=== PATIENT | male | born 1955 | race Two or more races ===

== ENCOUNTER 2023-01-03 23:40 | Inpatient (IN) | payer OTHER ==
[2023-01-04 00:10] VITALS: BMI 23.8
[2023-01-04] MEDS ORDERED: ACETAMINOPHEN 1000 MG/100 ML BAG IVPB ONE (00:51)
[2023-01-04] MEDS ORDERED: ACETAMINOPHEN INJECTION 100 ML IVPB ONE (00:58)
[2023-01-04 01:07] LABS: BASO % 0.4 % (0-2.0); EOS % 5.9 % (0-4.5); HEMATOCRIT 42.3 % (35.4-49); HEMOGLOBIN 14.2 GM/dL (11.7-16.9); LYMPH % 17.5 % (8-40); MCH 27.6 pg (25.7-33.7); MCHC 33.6 g/dl (32.0-35.9); MEAN CELL VOLUME 82.3 fl (80-96); MEAN PLT VOLUME 8.3 fl (7.5-11.1); MONO % 12.1 % (3.8-10.2); NEUT % 64.1 % (42.8-82.8); PLATELET COUNT 220 10^3/uL (134-434); RBC 5.14 M/mm3 (4.00-5.60); RDW 18.1 % (11.9-15.9); WHITE BLOOD COUNT 6.8 K/mm3 (4.0-10.0)
[2023-01-04 01:11] LABS: INR 1.04 (0.83-1.09); PROTHROMBIN TIME (PATIENT) 12.1 SEC (9.7-13.0)
[2023-01-04 01:14] LABS: ACTIVATED PTT 30.1 SECONDS (25.2-36.5)
[2023-01-04 01:24] LABS: POTASSIUM 4.8 mmol/L (3.5-5.1)
[2023-01-04 01:27] LABS: CALCIUM 9.3 mg/dL (8.5-10.1)
[2023-01-04 01:28] LABS: ALBUMIN 3.8 g/dl (3.4-5.0); BLOOD UREA NITROGEN 24.8 mg/dL (7-18); MAGNESIUM 1.8 mg/dL (1.8-2.4)
[2023-01-04 01:31] LABS: CREATININE 1.9 mg/dL (0.55-1.3)
[2023-01-04 01:32] LABS: TOT PROT 7.1 g/dl (6.4-8.2)
[2023-01-04 01:33] LABS: BILIRUBIN,TOTAL 0.5 mg/dL (0.2-1)
[2023-01-04] MEDS ORDERED: CLOPIDOGREL BISULFATE 300 MG TABLET PO ONE (05:18)
[2023-01-04] MEDS ORDERED: CLOPIDOGREL BISULFATE 300 MG TABLET ONE (05:29)
[2023-01-04] MEDS ORDERED: ENOXAPARIN NA (PORCINE) 60 MG/0.6 ML DISP.SYRIN SQ ONE ×2 (06:45→06:50)
[2023-01-04] MEDS ORDERED: morphine CARPU-JECT 4 MG/1 ML DISP.SYRIN IVPUSH ONE (08:41)
[2023-01-04] MEDS ORDERED: morphine SULFATE 4 MG/ML VIAL ONE (08:42)
[2023-01-04] MEDS ORDERED: traMADol HCL 50 MG TABLET PO PRN (09:41)
[2023-01-04] MEDS ORDERED: ALBUTEROL SO4 HFA INHALER IH PRN (09:41)
[2023-01-04] MEDS ORDERED: HYDROCORTISONE 20 MG TABLET PO SCH (10:00)
[2023-01-04] MEDS ORDERED: TAMSULOSIN HCL 0.4 MG CAP PO SCH (10:00)
[2023-01-04] MEDS ORDERED: PATIENT'S OWN MEDICATION (NON-FORMULARY) (Calcium Carbonate/Vitamin D3 [Calcium 500-Vit D3 PO SCH (10:00)
[2023-01-04] MEDS ORDERED: SACUBITRIL/VALSARTAN 24 MG-26 MG TABLET PO SCH (10:00)
[2023-01-04] MEDS ORDERED: CARVEDILOL 6.25 MG TABLET (FP) PO SCH (10:00)
[2023-01-04] MEDS ORDERED: CALCIUM 500MG/VIT-D 200 UNITS COMBO TABLET (FP) PO SCH (10:00)
[2023-01-04] MEDS ORDERED: SACUBITRIL/VALSARTAN 24 MG-26 MG TABLET ONE (10:02)
[2023-01-04] MEDS ORDERED: CARVEDILOL 6.25 MG TABLET (FP) ONE (10:02)
[2023-01-04] MEDS ORDERED: TAMSULOSIN HCL 0.4 MG CAP ONE (10:02)
[2023-01-04] MEDS ORDERED: ATORVASTATIN CA 80 MG TABLET (FP) PO ONE (10:48)
[2023-01-04] MEDS ORDERED: ATORVASTATIN CA 80 MG TABLET (FP) ONE (10:59)
[2023-01-04] MEDS ORDERED: DEXTROSE 50%-WATER 25 GM/50 ML DISP.SYRIN ONE (12:56)
[2023-01-04] MEDS ORDERED: DEXTROSE 50%-WATER - 25 GM/50 ML VIAL IVPUSH ONE (13:00)
[2023-01-04] MEDS ORDERED: NITROGLYCERIN SUBLINGUAL 1/150 0.4 MG TAB SL PRN (13:09)
[2023-01-04 14:43] VITALS: BP 120/71; PULSE 78; RESP 23; TEMP 98
[2023-01-04] MEDS ORDERED: ENOXAPARIN NA (PORCINE) 60 MG/0.6 ML DISP.SYRIN SQ SCH (18:00)
[2023-01-05] MEDS ORDERED: CLOPIDOGREL BISULFATE 75 MG TABLET (FP) PO SCH (10:00)
[2023-01-05] MEDS ORDERED: ATORVASTATIN CA 80 MG TABLET (FP) PO SCH (22:00)
== END 2023-01-04 13:40 | disposition short-term general hospital (02) | DRG 281 ==
LOC: JER 23:40 → JERBED 01-04 06:06 → OBSVTOIN 01-04 09:53
PROVIDERS: ADMIT Internal Medicine; ATTEND Internal Medicine
DX: I21.4 Non-ST elevation (NSTEMI) myocardial infarction (principal); I13.0 Hypertensive heart and chronic kidney disease with heart failure and stage 1 through stage 4 chronic kidney disease, or unspecified chronic kidney disease; I50.22 Chronic systolic (congestive) heart failure; I25.10 Atherosclerotic heart disease of native coronary artery without angina pectoris; Z85.118 Personal history of other malignant neoplasm of bronchus and lung; N18.9 Chronic kidney disease, unspecified
CPT/HCPCS: 0241U-QW; 36415; 71045-TC-FY; 71275-TC; 80053; 82962; 83735; 84460; 84484; 85025; 85610; 85730; 93005; 93010; 99285-25; G0378; Q9967

== ENCOUNTER 2023-01-24 20:11 | Inpatient (IN) | payer OTHER ==
[2023-01-24 22:28] LABS: VENOUS BASE EXCESS -5.5 mmol/L (-2-2); VENOUS PH 7.207 (7.310-7.410)
[2023-01-24 22:29] LABS: BASO % 1.1 % (0-2.0); EOS % 4.8 % (0-4.5); HEMATOCRIT 33.4 % (35.4-49); LYMPH % 11.2 % (8-40); MCH 27.6 pg (25.7-33.7); MCHC 32.9 g/dl (32.0-35.9); MEAN CELL VOLUME 83.8 fl (80-96); MEAN PLT VOLUME 7.4 fl (7.5-11.1); MONO % 8.3 % (3.8-10.2); NEUT % 74.6 % (42.8-82.8); PLATELET COUNT 445 10^3/uL (134-434); RBC 3.98 M/mm3 (4.00-5.60); RDW 17.2 % (11.9-15.9); WHITE BLOOD COUNT 7.9 K/mm3 (4.0-10.0)
[2023-01-24 22:36] LABS: INR 1.18 (0.83-1.09); PROTHROMBIN TIME (PATIENT) 13.7 SEC (9.7-13.0)
[2023-01-24 22:39] LABS: ACTIVATED PTT 31.7 SECONDS (25.2-36.5)
[2023-01-24 22:41] LABS: POTASSIUM 4.7 mmol/L (3.5-5.1)
[2023-01-24 22:43] LABS: ALBUMIN 2.9 g/dl (3.4-5.0); BLOOD UREA NITROGEN 17.5 mg/dL (7-18); CALCIUM 8.8 mg/dL (8.5-10.1)
[2023-01-24 22:47] LABS: CREATININE 1.8 mg/dL (0.55-1.3)
[2023-01-24 22:48] LABS: BILIRUBIN,TOTAL 0.4 mg/dL (0.2-1)
[2023-01-24 22:51] LABS: N-TERMINAL BNP 1885.8 pg/ml (5-125)
[2023-01-25] MEDS ORDERED: PIPERACILLIN/TAZOB 4.5 GM 4.5 GM in DEXTROSE 5%-WATER 100 ML IVPB ONE (02:10)
[2023-01-25] MEDS ORDERED: VANCOMYCIN 1,000 MG in DEXTROSE 5%-WATER - 250 ML IVPB ONE (02:10)
[2023-01-25] MEDS ORDERED: PIPERACILLIN/TAZOB 4.5 GM 4.5 GM/100 ML BAG IVPB ONE (02:44)
[2023-01-25] MEDS ORDERED: VANCOMYCIN 1 GRAM (PRE-DOCKED) 1,000 MG/250 ML BAG IVPB ONE (04:01)
[2023-01-25] MEDS ORDERED: HEPARIN NA (PORCINE) 5,000 UNITS/ML 1ML VIAL ONE (05:37)
[2023-01-25] MEDS: HEPARIN NA (PORCINE) 5,000 UNITS/ML 1ML VIAL SQ SCH ×3 (05:46→23:35)
[2023-01-25 08:37] LABS: BASO % 0.5 % (0-2.0); EOS % 2.9 % (0-4.5); HEMATOCRIT 34.3 % (35.4-49); HEMOGLOBIN 11.4 GM/dL (11.7-16.9); LYMPH % 6.5 % (8-40); MCHC 33.3 g/dl (32.0-35.9); MEAN CELL VOLUME 84.1 fl (80-96); MEAN PLT VOLUME 7.4 fl (7.5-11.1); MONO % 4.5 % (3.8-10.2); NEUT % 85.6 % (42.8-82.8); PLATELET COUNT 447 10^3/uL (134-434); RBC 4.08 M/mm3 (4.00-5.60); RDW 17.3 % (11.9-15.9); WHITE BLOOD COUNT 10.5 K/mm3 (4.0-10.0)
[2023-01-25 08:52] LABS: POTASSIUM 5.1 mmol/L (3.5-5.1)
[2023-01-25 08:54] LABS: ALBUMIN 2.7 g/dl (3.4-5.0); BLOOD UREA NITROGEN 15.7 mg/dL (7-18); CALCIUM 9.1 mg/dL (8.5-10.1); MAGNESIUM 1.7 mg/dL (1.8-2.4)
[2023-01-25 08:57] LABS: CREATININE 1.6 mg/dL (0.55-1.3); PHOSPHOROUS 4.2 mg/dL (2.5-4.9)
[2023-01-25 08:59] LABS: BILIRUBIN,TOTAL 0.6 mg/dL (0.2-1); IRON SERUM 31 ug/dL (50-175); TOT PROT 5.8 g/dl (6.4-8.2)
[2023-01-25 09:00] LABS: TOTAL IRON BINDING CAPACITY 186 ug/dL (250-450)
[2023-01-25] MEDS ORDERED: ENOXAPARIN NA (PORCINE) 40 MG/0.4 ML DISP.SYRIN SQ SCH (10:00)
[2023-01-25] MEDS ORDERED: PIPERACILLIN/TAZOB 3.375 GM 3.375 GM in DEXTROSE 5%-WATER - 50 ML IVPB SCH (10:00)
[2023-01-25] MEDS ORDERED: ALBUTEROL SO4 2.5/IPRATROPIUM 0.5 INH SOL 3 ML VIAL.NEB. NEB ONE ×3 (12:25→22:56)
[2023-01-25] MEDS ORDERED: CLOPIDOGREL BISULFATE 75 MG TABLET (FP) ONE (12:25)
[2023-01-25] MEDS ORDERED: methylPREDNISolone NA SUCC 40 MG/1 ML VIAL ONE ×2 (12:26→22:56)
[2023-01-25] MEDS ORDERED: PIPERACILLIN/TAZOB 3.375 GM 3.375 GM/50 ML BAG IVPB ONE (12:26)
[2023-01-25] MEDS: CLOPIDOGREL BISULFATE 75 MG TABLET (FP) PO SCH (12:43)
[2023-01-25] MEDS: methylPREDNISolone NA SUCC 40 MG/1 ML VIAL IVPUSH SCH ×2 (12:43→22:57)
[2023-01-25] MEDS: ALBUTEROL SO4 2.5/IPRATROPIUM 0.5 INH SOL 3 ML VIAL.NEB. NEB SCH ×3 (12:52→22:57)
[2023-01-25] MEDS ORDERED: NAPH,MB-DB/K PH,MBDB POWDER PACKET PO ONE (15:36)
[2023-01-25] MEDS ORDERED: NAPH,MB-DB/K PH,MBDB POWDER PACKET ONE (16:53)
[2023-01-25] MEDS: BUDESONIDE/FORMETEROL FUMARATE 160/4.5 mcg INHALER IH SCH ×2 (17:46→23:35)
[2023-01-25] MEDS ORDERED: CEFTRIAXONE 2 GM/100 ML BAG IVPB ONE (19:15)
[2023-01-25] MEDS ORDERED: AZITHROMYCIN IVPB 500 MG/250 ML BAG IVPB ONE (19:16)
[2023-01-25] MEDS: CEFTRIAXONE 2 GM in DEXTROSE 5%-WATER 100 ML IVPB SCH (19:24)
[2023-01-25] MEDS: AZITHROMYCIN IVPB 500 MG/250 ML BAG IVPB SCH (20:15)
[2023-01-25] MEDS ORDERED: ATORVASTATIN CA 40 MG TABLET (FP) ONE (22:16)
[2023-01-25] MEDS ORDERED: CARVEDILOL 3.125 MG TABLET (FP) ONE (22:16)
[2023-01-25] MEDS: CARVEDILOL 3.125 MG TABLET (FP) PO SCH (22:29)
[2023-01-25] MEDS: ATORVASTATIN CA 40 MG TABLET (FP) PO SCH (22:29)
[2023-01-26] MEDS ORDERED: methylPREDNISolone NA SUCC 40 MG/1 ML VIAL ONE (02:06)
[2023-01-26] MEDS: methylPREDNISolone NA SUCC 40 MG/1 ML VIAL IVPUSH SCH ×3 (02:10→18:25)
[2023-01-26] MEDS ORDERED: ALBUTEROL SO4 2.5/IPRATROPIUM 0.5 INH SOL 3 ML VIAL.NEB. NEB ONE (05:32)
[2023-01-26] MEDS ORDERED: HEPARIN NA (PORCINE) 5,000 UNITS/ML 1ML VIAL ONE (05:36)
[2023-01-26] MEDS: HEPARIN NA (PORCINE) 5,000 UNITS/ML 1ML VIAL SQ SCH ×3 (05:40→22:14)
[2023-01-26] MEDS ORDERED: ALBUTEROL SO4 2.5/IPRATROPIUM 0.5 INH SOL 3 ML VIAL.NEB. NEB PRN (06:24)
[2023-01-26 08:25] LABS: HEMATOCRIT 35.6 % (35.4-49); HEMOGLOBIN 11.7 GM/dL (11.7-16.9); MCH 27.2 pg (25.7-33.7); MCHC 32.8 g/dl (32.0-35.9); MEAN CELL VOLUME 83.1 fl (80-96); MEAN PLT VOLUME 7.6 fl (7.5-11.1); PLATELET COUNT 557 10^3/uL (134-434); RBC 4.29 M/mm3 (4.00-5.60); RDW 17.4 % (11.9-15.9); WHITE BLOOD COUNT 12.5 K/mm3 (4.0-10.0)
[2023-01-26] MEDS ORDERED: AZITHROMYCIN IVPB 500 MG/250 ML BAG IVPB ONE (08:45)
[2023-01-26] MEDS ORDERED: CEFTRIAXONE 2 GM/100 ML BAG IVPB ONE (08:45)
[2023-01-26 08:48] LABS: POTASSIUM 5.2 mmol/L (3.5-5.1)
[2023-01-26 09:08] LABS: BLOOD UREA NITROGEN 22.8 mg/dL (7-18); CALCIUM 9.4 mg/dL (8.5-10.1); MAGNESIUM 1.8 mg/dL (1.8-2.4)
[2023-01-26 09:11] LABS: CREATININE 1.8 mg/dL (0.55-1.3); PHOSPHOROUS 6.7 mg/dL (2.5-4.9)
[2023-01-26 09:12] LABS: BILIRUBIN,TOTAL 0.4 mg/dL (0.2-1); TOT PROT 6.6 g/dl (6.4-8.2)
[2023-01-26] MEDS: ALBUTEROL SO4 2.5/IPRATROPIUM 0.5 INH SOL 3 ML VIAL.NEB. NEB SCH ×3 (09:25→20:05)
[2023-01-26] MEDS: CARVEDILOL 3.125 MG TABLET (FP) PO SCH ×2 (09:25→22:13)
[2023-01-26] MEDS: CLOPIDOGREL BISULFATE 75 MG TABLET (FP) PO SCH (09:38)
[2023-01-26] MEDS: BUDESONIDE/FORMETEROL FUMARATE 160/4.5 mcg INHALER IH SCH ×2 (09:40→22:22)
[2023-01-26 10:29] LABS: ANISOCYTOSIS 1+; MACROCYTOSIS 0
[2023-01-26] MEDS ORDERED: TIOTROPIUM BROMIDE 2.5 MCG (SPIRIVA) RESPIMAT INHALER IH SCH (11:15)
[2023-01-26] MEDS ORDERED: ALBUTEROL SO4 0.083% IH SOL 2.5 MG/3 ML VIAL.NEB. NEB SCH (12:00)
[2023-01-26] MEDS: guaiFENesin 600 MG TABLET.ER (FP) PO SCH ×2 (12:54→22:13)
[2023-01-26] MEDS: CEFTRIAXONE 2 GM in DEXTROSE 5%-WATER 100 ML IVPB SCH (12:54)
[2023-01-26] MEDS: AZITHROMYCIN IVPB 500 MG/250 ML BAG IVPB SCH (14:50)
[2023-01-26 16:22] LABS: ARTERIAL BLD GAS O2 SATURATION 97.6 % (95-98); ARTERIAL BLOOD GAS BASE EXCESS -6.7 mmol/L (-2-2); ARTERIAL BLOOD GAS PO2 103.6 mmHg (80-100); ARTERIAL BLOOD GAS pH 7.362 (7.350-7.450)
[2023-01-26 16:25] LABS: ALLENS TEST POSITIVE
[2023-01-26] MEDS: ATORVASTATIN CA 40 MG TABLET (FP) PO SCH (22:12)
[2023-01-27] MEDS: methylPREDNISolone NA SUCC 40 MG/1 ML VIAL IVPUSH SCH ×3 (02:13→18:34)
[2023-01-27] MEDS: HEPARIN NA (PORCINE) 5,000 UNITS/ML 1ML VIAL SQ SCH ×3 (05:46→21:52)
[2023-01-27 07:01] LABS: URINE APPEARANCE CLEAR; URINE BILIRUBIN NEGATIVE (NEGATIVE); URINE COLOR YELLOW; URINE GLUCOSE (UA) NEGATIVE (NEGATIVE); URINE KETONE TRACE (NEGATIVE); URINE LEUK ESTERASE NEGATIVE (NEGATIVE); URINE NITRITE NEGATIVE (NEGATIVE); URINE PROTEIN NEGATIVE (NEGATIVE); URINE UROBILINOGEN 0.2 mg/dL (0.2-1.0)
[2023-01-27 07:27] LABS: HEMATOCRIT 29.4 % (35.4-49); HEMOGLOBIN 9.8 GM/dL (11.7-16.9); MCH 27.4 pg (25.7-33.7); MCHC 33.2 g/dl (32.0-35.9); MEAN CELL VOLUME 82.3 fl (80-96); MEAN PLT VOLUME 7.5 fl (7.5-11.1); PLATELET COUNT 544 10^3/uL (134-434); RBC 3.57 M/mm3 (4.00-5.60); RDW 16.9 % (11.9-15.9); WHITE BLOOD COUNT 15.7 K/mm3 (4.0-10.0)
[2023-01-27 07:35] LABS: POTASSIUM 4.4 mmol/L (3.5-5.1)
[2023-01-27 07:40] LABS: CALCIUM 8.6 mg/dL (8.5-10.1)
[2023-01-27 07:41] LABS: ALBUMIN 2.8 g/dl (3.4-5.0); BLOOD UREA NITROGEN 30.4 mg/dL (7-18); MAGNESIUM 1.6 mg/dL (1.8-2.4)
[2023-01-27 07:43] LABS: CREATININE 1.7 mg/dL (0.55-1.3); PHOSPHOROUS 4.5 mg/dL (2.5-4.9)
[2023-01-27 07:45] LABS: TOT PROT 6.1 g/dl (6.4-8.2)
[2023-01-27 07:55] LABS: BILIRUBIN,TOTAL 0.3 mg/dL (0.2-1)
[2023-01-27] MEDS: AZITHROMYCIN IVPB 500 MG/250 ML BAG IVPB SCH (09:33)
[2023-01-27] MEDS: CEFTRIAXONE 2 GM in DEXTROSE 5%-WATER 100 ML IVPB SCH (09:33)
[2023-01-27] MEDS: CLOPIDOGREL BISULFATE 75 MG TABLET (FP) PO SCH (09:33)
[2023-01-27] MEDS: CARVEDILOL 3.125 MG TABLET (FP) PO SCH ×2 (09:33→21:52)
[2023-01-27] MEDS: guaiFENesin 600 MG TABLET.ER (FP) PO SCH ×2 (09:33→21:52)
[2023-01-27] MEDS: BUDESONIDE/FORMETEROL FUMARATE 160/4.5 mcg INHALER IH SCH ×2 (09:45→21:57)
[2023-01-27] MEDS: ALBUTEROL SO4 2.5/IPRATROPIUM 0.5 INH SOL 3 ML VIAL.NEB. NEB SCH ×4 (09:50→19:35)
[2023-01-27 16:19] VITALS: BMI 19.4
[2023-01-27] MEDS: ATORVASTATIN CA 40 MG TABLET (FP) PO SCH (21:52)
[2023-01-27] MEDS: traZODone HCL 50 MG TABLET (FP) PO SCH (21:58)
[2023-01-28] MEDS: methylPREDNISolone NA SUCC 40 MG/1 ML VIAL IVPUSH SCH ×3 (03:28→17:33)
[2023-01-28] MEDS: HEPARIN NA (PORCINE) 5,000 UNITS/ML 1ML VIAL SQ SCH ×3 (05:58→22:08)
[2023-01-28] MEDS: ALBUTEROL SO4 2.5/IPRATROPIUM 0.5 INH SOL 3 ML VIAL.NEB. NEB SCH ×4 (07:21→20:05)
[2023-01-28] MEDS: TRIMETHOBENZAMIDE HCL 200MG/2ML INJ IM PRN (07:41)
[2023-01-28 07:43] LABS: HEMATOCRIT 31.1 % (35.4-49); HEMOGLOBIN 10.4 GM/dL (11.7-16.9); MCH 27.2 pg (25.7-33.7); MCHC 33.4 g/dl (32.0-35.9); MEAN CELL VOLUME 81.4 fl (80-96); MEAN PLT VOLUME 7.6 fl (7.5-11.1); PLATELET COUNT 536 10^3/uL (134-434); RBC 3.81 M/mm3 (4.00-5.60); RDW 17.4 % (11.9-15.9)
[2023-01-28 07:55] LABS: POTASSIUM 4.3 mmol/L (3.5-5.1)
[2023-01-28 08:01] LABS: ALBUMIN 2.8 g/dl (3.4-5.0); CALCIUM 8.7 mg/dL (8.5-10.1); MAGNESIUM 1.8 mg/dL (1.8-2.4)
[2023-01-28 08:02] LABS: BLOOD UREA NITROGEN 33.8 mg/dL (7-18)
[2023-01-28 08:04] LABS: BILIRUBIN,TOTAL 0.3 mg/dL (0.2-1); PHOSPHOROUS 2.7 mg/dL (2.5-4.9)
[2023-01-28 08:05] LABS: CREATININE 1.5 mg/dL (0.55-1.3)
[2023-01-28] MEDS: CARVEDILOL 3.125 MG TABLET (FP) PO SCH ×2 (10:32→22:08)
[2023-01-28] MEDS: CLOPIDOGREL BISULFATE 75 MG TABLET (FP) PO SCH (10:33)
[2023-01-28] MEDS: guaiFENesin 600 MG TABLET.ER (FP) PO SCH ×2 (10:33→22:15)
[2023-01-28] MEDS: CEFTRIAXONE 2 GM in DEXTROSE 5%-WATER 100 ML IVPB SCH (10:33)
[2023-01-28] MEDS: BUDESONIDE/FORMETEROL FUMARATE 160/4.5 mcg INHALER IH SCH ×2 (10:34→22:23)
[2023-01-28] MEDS: AZITHROMYCIN IVPB 500 MG/250 ML BAG IVPB SCH (10:34)
[2023-01-28] MEDS ORDERED: PANTOPRAZOLE SODIUM 40 MG VIAL IVPUSH SCH ×2 (12:00→12:30)
[2023-01-28] MEDS ORDERED: PANTOPRAZOLE 20 MG TABLET PO SCH (12:15)
[2023-01-28] MEDS: ATORVASTATIN CA 40 MG TABLET (FP) PO SCH (22:07)
[2023-01-28] MEDS: traZODone HCL 50 MG TABLET (FP) PO SCH (22:07)
[2023-01-29] MEDS: methylPREDNISolone NA SUCC 40 MG/1 ML VIAL IVPUSH SCH ×2 (01:02→09:41)
[2023-01-29] MEDS: HEPARIN NA (PORCINE) 5,000 UNITS/ML 1ML VIAL SQ SCH ×3 (06:39→21:49)
[2023-01-29 07:10] LABS: HEMATOCRIT 31.3 % (35.4-49); HEMOGLOBIN 10.6 GM/dL (11.7-16.9); MCH 27.9 pg (25.7-33.7); MCHC 33.8 g/dl (32.0-35.9); MEAN CELL VOLUME 82.5 fl (80-96); MEAN PLT VOLUME 7.7 fl (7.5-11.1); PLATELET COUNT 549 10^3/uL (134-434); RDW 17.1 % (11.9-15.9); WHITE BLOOD COUNT 11.2 K/mm3 (4.0-10.0)
[2023-01-29 07:24] LABS: POTASSIUM 4.5 mmol/L (3.5-5.1)
[2023-01-29 07:28] LABS: BLOOD UREA NITROGEN 35.8 mg/dL (7-18)
[2023-01-29 07:29] LABS: ALBUMIN 2.9 g/dl (3.4-5.0); CALCIUM 8.9 mg/dL (8.5-10.1)
[2023-01-29 07:32] LABS: CREATININE 1.5 mg/dL (0.55-1.3); PHOSPHOROUS 2.5 mg/dL (2.5-4.9)
[2023-01-29 07:34] LABS: BILIRUBIN,TOTAL 0.3 mg/dL (0.2-1); TOT PROT 6.2 g/dl (6.4-8.2)
[2023-01-29] MEDS: ALBUTEROL SO4 2.5/IPRATROPIUM 0.5 INH SOL 3 ML VIAL.NEB. NEB SCH ×4 (08:25→20:50)
[2023-01-29] MEDS: CARVEDILOL 3.125 MG TABLET (FP) PO SCH ×2 (09:41→21:45)
[2023-01-29] MEDS: PANTOPRAZOLE 40 MG TABLET PO SCH (09:41)
[2023-01-29] MEDS: CLOPIDOGREL BISULFATE 75 MG TABLET (FP) PO SCH (09:41)
[2023-01-29] MEDS: guaiFENesin 600 MG TABLET.ER (FP) PO SCH ×2 (09:41→21:52)
[2023-01-29] MEDS: BUDESONIDE/FORMETEROL FUMARATE 160/4.5 mcg INHALER IH SCH ×2 (09:42→21:52)
[2023-01-29] MEDS: CEFTRIAXONE 2 GM in DEXTROSE 5%-WATER 100 ML IVPB SCH (09:42)
[2023-01-29] MEDS ORDERED: AZITHROMYCIN 250 MG TABLET PO SCH (10:00)
[2023-01-29] MEDS: ATORVASTATIN CA 40 MG TABLET (FP) PO SCH (21:52)
[2023-01-29] MEDS: traZODone HCL 50 MG TABLET (FP) PO SCH (21:54)
[2023-01-30] MEDS ORDERED: MELATONIN 5 MG TABLETS PO ONE (01:47)
[2023-01-30] MEDS: TRIMETHOBENZAMIDE HCL 200MG/2ML INJ IM PRN (05:32)
[2023-01-30] MEDS: HEPARIN NA (PORCINE) 5,000 UNITS/ML 1ML VIAL SQ SCH ×3 (05:36→22:41)
[2023-01-30] MEDS: ALBUTEROL SO4 2.5/IPRATROPIUM 0.5 INH SOL 3 ML VIAL.NEB. NEB SCH ×4 (08:59→20:24)
[2023-01-30] MEDS ORDERED: predniSONE 20 MG TABLET (UD) PO SCH (10:00)
[2023-01-30] MEDS: CEFTRIAXONE 2 GM in DEXTROSE 5%-WATER 100 ML IVPB SCH (10:39)
[2023-01-30] MEDS: CLOPIDOGREL BISULFATE 75 MG TABLET (FP) PO SCH (10:40)
[2023-01-30] MEDS: guaiFENesin 600 MG TABLET.ER (FP) PO SCH ×2 (10:40→22:40)
[2023-01-30] MEDS: CARVEDILOL 3.125 MG TABLET (FP) PO SCH ×2 (10:40→22:38)
[2023-01-30] MEDS: PANTOPRAZOLE 40 MG TABLET PO SCH (10:40)
[2023-01-30] MEDS: BUDESONIDE/FORMETEROL FUMARATE 160/4.5 mcg INHALER IH SCH ×2 (10:41→22:43)
[2023-01-30 12:39] LABS: HEMATOCRIT 30.3 % (35.4-49); HEMOGLOBIN 10.2 GM/dL (11.7-16.9); MCH 27.6 pg (25.7-33.7); MCHC 33.7 g/dl (32.0-35.9); MEAN PLT VOLUME 7.9 fl (7.5-11.1); PLATELET COUNT 468 10^3/uL (134-434); RBC 3.69 M/mm3 (4.00-5.60); RDW 17.3 % (11.9-15.9); WHITE BLOOD COUNT 8.8 K/mm3 (4.0-10.0)
[2023-01-30 12:51] LABS: POTASSIUM 4.4 mmol/L (3.5-5.1)
[2023-01-30 12:55] LABS: ALBUMIN 2.8 g/dl (3.4-5.0); CALCIUM 9.4 mg/dL (8.5-10.1)
[2023-01-30 12:56] LABS: BLOOD UREA NITROGEN 35.7 mg/dL (7-18)
[2023-01-30 12:59] LABS: PHOSPHOROUS 2.1 mg/dL (2.5-4.9)
[2023-01-30 13:00] LABS: BILIRUBIN,TOTAL 0.4 mg/dL (0.2-1); TOT PROT 5.6 g/dl (6.4-8.2)
[2023-01-30 13:07] LABS: CREATININE 1.3 mg/dL (0.55-1.3)
[2023-01-30] MEDS ORDERED: NAPH,MB-DB/K PH,MBDB POWDER PACKET PO ONE (19:35)
[2023-01-30] MEDS: ALBUTEROL SO4 2.5/IPRATROPIUM 0.5 INH SOL 3 ML VIAL.NEB. NEB PRN (21:37)
[2023-01-30] MEDS: traZODone HCL 50 MG TABLET (FP) PO SCH (22:38)
[2023-01-30] MEDS: ATORVASTATIN CA 40 MG TABLET (FP) PO SCH (22:41)
[2023-01-30] MEDS: MELATONIN 5 MG TABLETS PO SCH (22:52)
[2023-01-31] MEDS: ALBUTEROL SO4 2.5/IPRATROPIUM 0.5 INH SOL 3 ML VIAL.NEB. NEB PRN (02:04)
[2023-01-31] MEDS: HEPARIN NA (PORCINE) 5,000 UNITS/ML 1ML VIAL SQ SCH ×3 (07:13→21:22)
[2023-01-31] MEDS: ALBUTEROL SO4 2.5/IPRATROPIUM 0.5 INH SOL 3 ML VIAL.NEB. NEB SCH ×4 (07:30→20:17)
[2023-01-31 08:43] LABS: HEMOGLOBIN 10.9 GM/dL (11.7-16.9); MCH 27.3 pg (25.7-33.7); MCHC 32.9 g/dl (32.0-35.9); MEAN CELL VOLUME 82.9 fl (80-96); MEAN PLT VOLUME 7.8 fl (7.5-11.1); PLATELET COUNT 471 10^3/uL (134-434); RBC 3.98 M/mm3 (4.00-5.60); RDW 17.2 % (11.9-15.9); WHITE BLOOD COUNT 7.6 K/mm3 (4.0-10.0)
[2023-01-31 09:07] LABS: ALBUMIN 2.8 g/dl (3.4-5.0)
[2023-01-31 09:08] LABS: CALCIUM 8.6 mg/dL (8.5-10.1)
[2023-01-31 09:09] LABS: BLOOD UREA NITROGEN 34.3 mg/dL (7-18); MAGNESIUM 1.9 mg/dL (1.8-2.4)
[2023-01-31 09:10] LABS: CREATININE 1.4 mg/dL (0.55-1.3); PHOSPHOROUS 3.3 mg/dL (2.5-4.9)
[2023-01-31 09:11] LABS: BILIRUBIN,TOTAL 0.4 mg/dL (0.2-1)
[2023-01-31 09:12] LABS: TOT PROT 5.9 g/dl (6.4-8.2)
[2023-01-31] MEDS: guaiFENesin 600 MG TABLET.ER (FP) PO SCH ×2 (09:31→21:16)
[2023-01-31] MEDS: predniSONE 20 MG TABLET (UD) PO SCH (09:31)
[2023-01-31] MEDS: PANTOPRAZOLE 40 MG TABLET PO SCH (09:32)
[2023-01-31] MEDS: CLOPIDOGREL BISULFATE 75 MG TABLET (FP) PO SCH (09:32)
[2023-01-31] MEDS: CEFTRIAXONE 2 GM in DEXTROSE 5%-WATER 100 ML IVPB SCH (09:32)
[2023-01-31] MEDS: CARVEDILOL 3.125 MG TABLET (FP) PO SCH ×2 (09:34→21:21)
[2023-01-31] MEDS: BUDESONIDE/FORMETEROL FUMARATE 160/4.5 mcg INHALER IH SCH ×2 (11:58→21:23)
[2023-01-31] MEDS: ATORVASTATIN CA 40 MG TABLET (FP) PO SCH (21:15)
[2023-01-31] MEDS: MELATONIN 5 MG TABLETS PO SCH (21:16)
[2023-01-31] MEDS: traZODone HCL 50 MG TABLET (FP) PO SCH (21:16)
[2023-02-01] MEDS: HEPARIN NA (PORCINE) 5,000 UNITS/ML 1ML VIAL SQ SCH ×3 (05:21→21:32)
[2023-02-01] MEDS: TRIMETHOBENZAMIDE HCL 200MG/2ML INJ IM PRN (07:22)
[2023-02-01] MEDS: ALBUTEROL SO4 2.5/IPRATROPIUM 0.5 INH SOL 3 ML VIAL.NEB. NEB SCH ×4 (08:40→20:05)
[2023-02-01 09:01] LABS: BASO % 0.2 % (0-2.0); HEMATOCRIT 33.5 % (35.4-49); HEMOGLOBIN 11.4 GM/dL (11.7-16.9); LYMPH % 7.4 % (8-40); MCH 27.9 pg (25.7-33.7); MEAN PLT VOLUME 8.2 fl (7.5-11.1); MONO % 10.9 % (3.8-10.2); NEUT % 81.5 % (42.8-82.8); PLATELET COUNT 476 10^3/uL (134-434); RBC 4.08 M/mm3 (4.00-5.60); RDW 17.4 % (11.9-15.9); WHITE BLOOD COUNT 9.5 K/mm3 (4.0-10.0)
[2023-02-01] MEDS: CARVEDILOL 3.125 MG TABLET (FP) PO SCH ×2 (09:06→21:31)
[2023-02-01] MEDS: PANTOPRAZOLE 40 MG TABLET PO SCH (09:06)
[2023-02-01] MEDS: predniSONE 20 MG TABLET (UD) PO SCH (09:06)
[2023-02-01] MEDS: guaiFENesin 600 MG TABLET.ER (FP) PO SCH ×2 (09:06→21:30)
[2023-02-01] MEDS: CEFTRIAXONE 2 GM in DEXTROSE 5%-WATER 100 ML IVPB SCH (09:07)
[2023-02-01] MEDS: CLOPIDOGREL BISULFATE 75 MG TABLET (FP) PO SCH (09:07)
[2023-02-01] MEDS: BUDESONIDE/FORMETEROL FUMARATE 160/4.5 mcg INHALER IH SCH ×2 (09:08→21:33)
[2023-02-01 09:46] LABS: BLOOD UREA NITROGEN 41.6 mg/dL (7-18); CALCIUM 9.4 mg/dL (8.5-10.1)
[2023-02-01 09:48] LABS: ALBUMIN 2.8 g/dl (3.4-5.0)
[2023-02-01] MEDS ORDERED: SODIUM ZIRCONIUM CYCLOSILICATE (LOKELMA) 5 GM PACKET PO ONE (09:49)
[2023-02-01 09:50] LABS: MAGNESIUM 1.8 mg/dL (1.8-2.4)
[2023-02-01 09:52] LABS: CREATININE 1.5 mg/dL (0.55-1.3)
[2023-02-01 09:53] LABS: BILIRUBIN,TOTAL 0.3 mg/dL (0.2-1)
[2023-02-01 09:54] LABS: TOT PROT 5.8 g/dl (6.4-8.2)
[2023-02-01] MEDS ORDERED: SACUBITRIL/VALSARTAN 24 MG-26 MG TABLET PO SCH (10:00)
[2023-02-01] MEDS: ACETAMINOPHEN 325 MG TABLET (FP) PO PRN (10:31)
[2023-02-01] MEDS: LIDOCAINE 4% PATCH TP SCH (10:46)
[2023-02-01] MEDS: traZODone HCL 50 MG TABLET (FP) PO SCH (21:29)
[2023-02-01] MEDS: MELATONIN 5 MG TABLETS PO SCH (21:30)
[2023-02-01] MEDS: ATORVASTATIN CA 40 MG TABLET (FP) PO SCH (21:31)
[2023-02-01] MEDS: LIDOCAINE PATCH REMOVAL MC SCH (21:41)
[2023-02-02] MEDS: TRIMETHOBENZAMIDE HCL 200MG/2ML INJ IM PRN (03:21)
[2023-02-02] MEDS: ACETAMINOPHEN 325 MG TABLET (FP) PO PRN ×2 (05:05→15:53)
[2023-02-02] MEDS: ALBUTEROL SO4 2.5/IPRATROPIUM 0.5 INH SOL 3 ML VIAL.NEB. NEB SCH ×4 (07:40→20:34)
[2023-02-02 09:09] LABS: BASO % 0.1 % (0-2.0); HEMATOCRIT 36.3 % (35.4-49); HEMOGLOBIN 12.3 GM/dL (11.7-16.9); LYMPH % 6.2 % (8-40); MCH 27.7 pg (25.7-33.7); MCHC 33.8 g/dl (32.0-35.9); MEAN CELL VOLUME 81.9 fl (80-96); MONO % 8.1 % (3.8-10.2); NEUT % 85.6 % (42.8-82.8); PLATELET COUNT 432 10^3/uL (134-434); RBC 4.44 M/mm3 (4.00-5.60); RDW 17.2 % (11.9-15.9)
[2023-02-02 09:27] LABS: POTASSIUM 4.7 mmol/L (3.5-5.1)
[2023-02-02 09:29] LABS: ALBUMIN 2.8 g/dl (3.4-5.0); CALCIUM 8.8 mg/dL (8.5-10.1); MAGNESIUM 1.9 mg/dL (1.8-2.4)
[2023-02-02 09:32] LABS: CREATININE 1.3 mg/dL (0.55-1.3)
[2023-02-02 09:34] LABS: BILIRUBIN,TOTAL 0.3 mg/dL (0.2-1); TOT PROT 5.6 g/dl (6.4-8.2)
[2023-02-02] MEDS: CLOPIDOGREL BISULFATE 75 MG TABLET (FP) PO SCH (10:06)
[2023-02-02] MEDS: predniSONE 20 MG TABLET (UD) PO SCH (10:06)
[2023-02-02] MEDS: PANTOPRAZOLE 40 MG TABLET PO SCH (10:06)
[2023-02-02] MEDS: guaiFENesin 600 MG TABLET.ER (FP) PO SCH ×2 (10:06→21:34)
[2023-02-02] MEDS: CARVEDILOL 3.125 MG TABLET (FP) PO SCH ×2 (10:07→21:33)
[2023-02-02] MEDS: CEFTRIAXONE 2 GM in DEXTROSE 5%-WATER 100 ML IVPB SCH (11:02)
[2023-02-02] MEDS: HEPARIN NA (PORCINE) 5,000 UNITS/ML 1ML VIAL SQ SCH ×2 (11:02→21:36)
[2023-02-02] MEDS: LIDOCAINE 4% PATCH TP SCH (13:26)
[2023-02-02] MEDS: BUDESONIDE/FORMETEROL FUMARATE 160/4.5 mcg INHALER IH SCH ×2 (13:27→21:36)
[2023-02-02 20:08] VITALS: RESP 18
[2023-02-02] MEDS: ATORVASTATIN CA 40 MG TABLET (FP) PO SCH (21:33)
[2023-02-02] MEDS: traZODone HCL 50 MG TABLET (FP) PO SCH (21:33)
[2023-02-02] MEDS: MELATONIN 5 MG TABLETS PO SCH (21:34)
[2023-02-02] MEDS: LIDOCAINE PATCH REMOVAL MC SCH (21:42)
[2023-02-03 08:56] LABS: BASO % 0.1 % (0-2.0); HEMATOCRIT 34.6 % (35.4-49); HEMOGLOBIN 11.5 GM/dL (11.7-16.9); LYMPH % 6.4 % (8-40); MCH 27.6 pg (25.7-33.7); MCHC 33.2 g/dl (32.0-35.9); MEAN CELL VOLUME 83.2 fl (80-96); MEAN PLT VOLUME 8.3 fl (7.5-11.1); MONO % 9.4 % (3.8-10.2); NEUT % 84.1 % (42.8-82.8); PLATELET COUNT 372 10^3/uL (134-434); RBC 4.16 M/mm3 (4.00-5.60); RDW 16.7 % (11.9-15.9); WHITE BLOOD COUNT 9.3 K/mm3 (4.0-10.0)
[2023-02-03] MEDS: ALBUTEROL SO4 2.5/IPRATROPIUM 0.5 INH SOL 3 ML VIAL.NEB. NEB SCH ×4 (08:56→20:18)
[2023-02-03 09:10] LABS: POTASSIUM 4.7 mmol/L (3.5-5.1)
[2023-02-03 09:13] LABS: BLOOD UREA NITROGEN 37.9 mg/dL (7-18); CALCIUM 9.2 mg/dL (8.5-10.1)
[2023-02-03 09:14] LABS: ALBUMIN 2.7 g/dl (3.4-5.0)
[2023-02-03 09:17] LABS: CREATININE 1.2 mg/dL (0.55-1.3)
[2023-02-03 09:19] LABS: BILIRUBIN,TOTAL 0.3 mg/dL (0.2-1); TOT PROT 5.4 g/dl (6.4-8.2)
[2023-02-03] MEDS: CARVEDILOL 3.125 MG TABLET (FP) PO SCH (09:31)
[2023-02-03] MEDS: guaiFENesin 600 MG TABLET.ER (FP) PO SCH (09:31)
[2023-02-03] MEDS: CLOPIDOGREL BISULFATE 75 MG TABLET (FP) PO SCH (09:31)
[2023-02-03] MEDS: CEFTRIAXONE 2 GM in DEXTROSE 5%-WATER 100 ML IVPB SCH (09:31)
[2023-02-03] MEDS: predniSONE 20 MG TABLET (UD) PO SCH (09:31)
[2023-02-03] MEDS: LIDOCAINE 4% PATCH TP SCH (09:31)
[2023-02-03] MEDS: PANTOPRAZOLE 40 MG TABLET PO SCH (09:31)
[2023-02-03] MEDS: BUDESONIDE/FORMETEROL FUMARATE 160/4.5 mcg INHALER IH SCH (09:32)
[2023-02-03] MEDS: HEPARIN NA (PORCINE) 5,000 UNITS/ML 1ML VIAL SQ SCH (09:32)
[2023-02-03 16:04] VITALS: PULSE 81
[2023-02-03 16:19] VITALS: BP 105/67; TEMP 98
== END 2023-02-03 20:40 | disposition home or self-care (01) | DRG 871 ==
LOC: JER 20:11 → JERBED 01-25 02:42 → J4W 01-26 13:34 → J8W 01-30 19:39
PROVIDERS: ADMIT Internal Medicine; ATTEND Nurse Practitioner Acute Care
DX: A41.9 Sepsis, unspecified organism (principal); I21.4 Non-ST elevation (NSTEMI) myocardial infarction; J18.9 Pneumonia, unspecified organism; J96.01 Acute respiratory failure with hypoxia; J96.02 Acute respiratory failure with hypercapnia; G81.94 Hemiplegia, unspecified affecting left nondominant side; C34.90 Malignant neoplasm of unspecified part of unspecified bronchus or lung; C79.51 Secondary malignant neoplasm of bone; I50.22 Chronic systolic (congestive) heart failure; J44.1 Chronic obstructive pulmonary disease with (acute) exacerbation; N17.9 Acute kidney failure, unspecified; I24.89 Other forms of acute ischemic heart disease; I13.0 Hypertensive heart and chronic kidney disease with heart failure and stage 1 through stage 4 chronic kidney disease, or unspecified chronic kidney disease; J44.0 Chronic obstructive pulmonary disease with (acute) lower respiratory infection; R64 Cachexia; Z68.1 Body mass index [BMI] 19.9 or less, adult; I69.354 Hemiplegia and hemiparesis following cerebral infarction affecting left non-dominant side; I25.10 Atherosclerotic heart disease of native coronary artery without angina pectoris; F17.210 Nicotine dependence, cigarettes, uncomplicated; Z95.1 Presence of aortocoronary bypass graft; E78.5 Hyperlipidemia, unspecified; N18.9 Chronic kidney disease, unspecified
CPT/HCPCS: 0241U-QW; 36415; 36600; 71045-TC-FY; 71275-TC; 74176-TC; 76775-TC; 80053; 81003; 82272; 82550; 82728; 82803; 83540; 83550; 83690; 83735; 83880; 84100; 84132; 84484; 85025; 85027; 85610; 85730; 87040; 87324; 87449; 87899; 93005; 93010; 93306-TC; 94640; 94660; 94761; 97116-GP; 99285-25; J1644

== ENCOUNTER 2023-02-08 12:56 | Inpatient (IN) | payer OTHER ==
[2023-02-08 13:48] LABS: HEMATOCRIT 36.1 % (35.4-49); HEMOGLOBIN 12.2 GM/dL (11.7-16.9); MCH 28.3 pg (25.7-33.7); MCHC 33.8 g/dl (32.0-35.9); MEAN CELL VOLUME 83.7 fl (80-96); MEAN PLT VOLUME 7.8 fl (7.5-11.1); PLATELET COUNT 349 10^3/uL (134-434); RBC 4.31 M/mm3 (4.00-5.60); RDW 17.6 % (11.9-15.9); WHITE BLOOD COUNT 12.4 K/mm3 (4.0-10.0)
[2023-02-08 13:56] LABS: VENOUS BASE EXCESS -1.6 mmol/L (-2-2); VENOUS O2 SATURATION 55.3 % (70-80); VENOUS PCO2 44.1 mmHg (38-52); VENOUS PH 7.355 (7.310-7.410)
[2023-02-08 14:11] LABS: ANISOCYTOSIS 2+; MACROCYTOSIS 0
[2023-02-08 14:15] LABS: POTASSIUM 5.7 mmol/L (3.5-5.1)
[2023-02-08 14:17] LABS: BLOOD UREA NITROGEN 41.1 mg/dL (7-18); CALCIUM 9.3 mg/dL (8.5-10.1); MAGNESIUM 2.1 mg/dL (1.8-2.4)
[2023-02-08] MEDS ORDERED: ALBUTEROL SO4 2.5/IPRATROPIUM 0.5 INH SOL 3 ML VIAL.NEB. NEB ONE ×4 (14:17→14:40)
[2023-02-08 14:18] LABS: ALBUMIN 3.2 g/dl (3.4-5.0)
[2023-02-08 14:20] LABS: CREATININE 1.5 mg/dL (0.55-1.3)
[2023-02-08 14:22] LABS: BILIRUBIN,TOTAL 0.5 mg/dL (0.2-1); TOT PROT 6.6 g/dl (6.4-8.2)
[2023-02-08 14:25] LABS: N-TERMINAL BNP 8531.9 pg/ml (5-125)
[2023-02-08] MEDS ORDERED: methylPREDNISolone NA SUCC 125 MG/2 ML VIAL IVPUSH ONE (14:31)
[2023-02-08] MEDS ORDERED: PIPERACILLIN/TAZOB 3.375 GM 3.375 GM in DEXTROSE 5%-WATER - 50 ML IVPB ONE (14:31)
[2023-02-08] MEDS ORDERED: VANCOMYCIN 1,000 MG in DEXTROSE 5%-WATER - 250 ML IVPB ONE (14:31)
[2023-02-08 14:36] LABS: LACTIC ACID 2.3 mmol/L (0.4-2.0)
[2023-02-08] MEDS ORDERED: VANCOMYCIN 1 GRAM (PRE-DOCKED) 1,000 MG/250 ML BAG IVPB ONE (14:40)
[2023-02-08] MEDS ORDERED: methylPREDNISolone NA SUCC 125 MG/2 ML VIAL ONE (14:41)
[2023-02-08] MEDS ORDERED: PIPERACILLIN/TAZOB 3.375 GM 3.375 GM/50 ML BAG IVPB ONE (14:41)
[2023-02-08] MEDS: AZITHROMYCIN IVPB 500 MG/250 ML BAG IVPB SCH (18:38)
[2023-02-08 22:44] LABS: VENOUS BASE EXCESS -3.3 mmol/L (-2-2); VENOUS O2 SATURATION 64.6 % (70-80); VENOUS PCO2 35.4 mmHg (38-52); VENOUS PH 7.391 (7.310-7.410)
[2023-02-08 22:49] LABS: HEMATOCRIT 33.4 % (35.4-49); MCH 27.7 pg (25.7-33.7); MCHC 33.1 g/dl (32.0-35.9); MEAN CELL VOLUME 83.7 fl (80-96); MEAN PLT VOLUME 7.9 fl (7.5-11.1); PLATELET COUNT 321 10^3/uL (134-434); RBC 3.98 M/mm3 (4.00-5.60); RDW 17.9 % (11.9-15.9); WHITE BLOOD COUNT 18.4 K/mm3 (4.0-10.0)
[2023-02-08 23:00] LABS: POTASSIUM 4.7 mmol/L (3.5-5.1)
[2023-02-08] MEDS: CHLORHEXIDINE GLUCONATE 4% CLEANSER FOR DECOLONIZATION TP SCH (23:00)
[2023-02-08] MEDS: MUPIROCIN 2% TOPICAL OINTMENT FOR DECOLONIZATION NS SCH (23:00)
[2023-02-08 23:03] LABS: ALBUMIN 3.1 g/dl (3.4-5.0); BLOOD UREA NITROGEN 43.6 mg/dL (7-18)
[2023-02-08 23:06] LABS: CREATININE 1.3 mg/dL (0.55-1.3)
[2023-02-08 23:07] LABS: TOT PROT 5.9 g/dl (6.4-8.2)
[2023-02-08 23:34] LABS: ANISOCYTOSIS 2+; MACROCYTOSIS 1+; OVALOCYTE 1+
[2023-02-08 23:41] LABS: CALCIUM 8.9 mg/dL (8.5-10.1); MAGNESIUM 2.1 mg/dL (1.8-2.4)
[2023-02-08 23:45] LABS: PHOSPHOROUS 4.6 mg/dL (2.5-4.9)
[2023-02-08 23:47] LABS: BILIRUBIN,TOTAL 0.6 mg/dL (0.2-1)
[2023-02-09] MEDS ORDERED: ACETAMINOPHEN 1000 MG/100 ML BAG IVPB ONE (01:54)
[2023-02-09] MEDS ORDERED: methylPREDNISolone NA SUCC 40 MG/1 ML VIAL IVPUSH STA (02:00)
[2023-02-09] MEDS: PIPERACILLIN/TAZOB 3.375 GM 3.375 GM/50 ML BAG IVPB SCH ×3 (03:30→08:32)
[2023-02-09] MEDS ORDERED: RAPID SEQUENCE INTUBATION KIT NR ONE (08:26)
[2023-02-09] MEDS: ALBUTEROL SO4 0.083% IH SOL 2.5 MG/3 ML VIAL.NEB. NEB PRN (08:59)
[2023-02-09] MEDS ORDERED: ACETYLCYSTEINE 20% 200MG/ML 4 ML VIAL *FOR ORAL / INH USE ONLY ONE (09:20)
[2023-02-09] MEDS: AZITHROMYCIN IVPB 500 MG/250 ML BAG IVPB SCH (09:25)
[2023-02-09] MEDS: PANTOPRAZOLE SODIUM 40 MG VIAL IVPUSH SCH (09:27)
[2023-02-09] MEDS: guaiFENesin 600 MG TABLET.ER (FP) PO SCH ×2 (09:27→21:48)
[2023-02-09] MEDS: MUPIROCIN 2% TOPICAL OINTMENT FOR DECOLONIZATION NS SCH ×2 (09:28→21:53)
[2023-02-09] MEDS: POLYETHYLENE GLYCOL (HEALTHYLAX) 3350 17 GM PACKET PO SCH ×2 (09:28→21:53)
[2023-02-09] MEDS ORDERED: PROPOFOL 1,000,000 MCG/100 ML VIAL ONE (09:49)
[2023-02-09] MEDS ORDERED: FENTANYL NS IVPB 500 MCG/100 ML BAG IVPB ONE (10:13)
[2023-02-09] MEDS: ACETYLCYSTEINE 20% 200MG/ML 4 ML VIAL *FOR ORAL / INH USE ONLY NEB SCH ×3 (11:07→21:08)
[2023-02-09] MEDS: ALBUTEROL SO4 0.083% IH SOL 2.5 MG/3 ML VIAL.NEB. NEB SCH ×3 (11:08→21:08)
[2023-02-09] MEDS ORDERED: ENOXAPARIN NA (PORCINE) 30 MG/0.3 ML DISP.SYRIN SQ SCH (12:00)
[2023-02-09 12:12] LABS: ARTERIAL BLD GAS O2 SATURATION 99.2 % (95-98); ARTERIAL BLOOD GAS BASE EXCESS -5.1 mmol/L (-2-2); ARTERIAL BLOOD GAS PO2 178.6 mmHg (80-100)
[2023-02-09 12:15] LABS: ALLENS TEST POSITIVE; VENT MODE AC; VENT RATE 14
[2023-02-09] MEDS: VANCOMYCIN/WATER FOR INJ (PEG) 750 MG/150 ML BAG IVPB SCH (12:53)
[2023-02-09] MEDS: methylPREDNISolone NA SUCC 40 MG/1 ML VIAL IVPUSH SCH ×2 (12:53→17:24)
[2023-02-09 12:55] LABS: HEMATOCRIT 26.7 % (35.4-49); HEMOGLOBIN 8.7 GM/dL (11.7-16.9); MCH 27.6 pg (25.7-33.7); MCHC 32.5 g/dl (32.0-35.9); MEAN CELL VOLUME 84.9 fl (80-96); MEAN PLT VOLUME 7.9 fl (7.5-11.1); PLATELET COUNT 235 10^3/uL (134-434); RBC 3.14 M/mm3 (4.00-5.60); RDW 17.9 % (11.9-15.9); WHITE BLOOD COUNT 16.8 K/mm3 (4.0-10.0)
[2023-02-09 13:14] LABS: POTASSIUM 4.1 mmol/L (3.5-5.1)
[2023-02-09 13:17] LABS: BLOOD UREA NITROGEN 39.3 mg/dL (7-18)
[2023-02-09 13:20] LABS: CREATININE 1.2 mg/dL (0.55-1.3)
[2023-02-09 13:21] LABS: BILIRUBIN,TOTAL 0.4 mg/dL (0.2-1); TOT PROT 4.4 g/dl (6.4-8.2)
[2023-02-09] MEDS: PROPOFOL 1,000,000 MCG/100 ML VIAL IVPUSH SCH ×2 (13:28→15:09)
[2023-02-09] MEDS: FENTANYL NS IVPB 500 MCG/100 ML BAG IVPB SCH ×2 (13:29→15:09)
[2023-02-09 13:41] LABS: ALBUMIN 2.2 g/dl (3.4-5.0); CALCIUM 7.2 mg/dL (8.5-10.1)
[2023-02-09 13:48] LABS: ANISOCYTOSIS 0; HELMET CELLS 0; HOWELL-JOLLY BODIES 0; MACROCYTOSIS 0; OVALOCYTE 0; ROULEAU 0; SICKELED CELLS 0; TARGET CELLS 0; TEAR DROP CELLS 0; TOXIC GRANULATION 0
[2023-02-09] MEDS: PIPERACILLIN/TAZOB 3.375 GM 3.375 GM in DEXTROSE 5%-WATER - 50 ML IVPB SCH ×2 (15:08→21:53)
[2023-02-09] MEDS ORDERED: SODIUM CHLORIDE 1,000 ML IV SCH (15:30)
[2023-02-09] MEDS: CHLORHEXIDINE GLUCONATE 4% CLEANSER FOR DECOLONIZATION TP SCH (21:53)
[2023-02-10] MEDS: VANCOMYCIN/WATER FOR INJ (PEG) 750 MG/150 ML BAG IVPB SCH ×2 (02:29→11:35)
[2023-02-10] MEDS ORDERED: PIPERACILLIN/TAZOBACTAM 3.375 GM VIAL IVPB ONE (02:31)
[2023-02-10] MEDS: methylPREDNISolone NA SUCC 40 MG/1 ML VIAL IVPUSH SCH ×3 (02:34→17:56)
[2023-02-10] MEDS: PIPERACILLIN/TAZOB 3.375 GM 3.375 GM in DEXTROSE 5%-WATER - 50 ML IVPB SCH ×4 (03:34→20:56)
[2023-02-10] MEDS: ACETYLCYSTEINE 20% 200MG/ML 4 ML VIAL *FOR ORAL / INH USE ONLY NEB SCH ×4 (08:05→20:35)
[2023-02-10] MEDS: ALBUTEROL SO4 0.083% IH SOL 2.5 MG/3 ML VIAL.NEB. NEB SCH ×4 (08:05→20:35)
[2023-02-10] MEDS ORDERED: ENOXAPARIN NA (PORCINE) 30 MG/0.3 ML DISP.SYRIN SQ SCH (08:17)
[2023-02-10] MEDS: MUPIROCIN 2% TOPICAL OINTMENT FOR DECOLONIZATION NS SCH ×2 (09:32→21:07)
[2023-02-10] MEDS: PANTOPRAZOLE SODIUM 40 MG VIAL IVPUSH SCH (09:32)
[2023-02-10] MEDS: PROPOFOL 1,000,000 MCG/100 ML VIAL IVPUSH SCH (09:32)
[2023-02-10] MEDS: POLYETHYLENE GLYCOL (HEALTHYLAX) 3350 17 GM PACKET PO SCH ×2 (09:33→21:01)
[2023-02-10] MEDS: guaiFENesin 600 MG TABLET.ER (FP) PO SCH ×2 (09:33→21:06)
[2023-02-10] MEDS: ENOXAPARIN NA (PORCINE) 40 MG/0.4 ML DISP.SYRIN SQ SCH (09:39)
[2023-02-10 13:09] LABS: BASO % 0.2 % (0-2.0); HEMATOCRIT 30.2 % (35.4-49); HEMOGLOBIN 9.7 GM/dL (11.7-16.9); LYMPH % 0.4 % (8-40); MCHC 31.9 g/dl (32.0-35.9); MEAN CELL VOLUME 84.7 fl (80-96); MEAN PLT VOLUME 7.8 fl (7.5-11.1); MONO % 1.7 % (3.8-10.2); NEUT % 97.7 % (42.8-82.8); PLATELET COUNT 231 10^3/uL (134-434); RBC 3.57 M/mm3 (4.00-5.60); RDW 18.3 % (11.9-15.9); WHITE BLOOD COUNT 22.2 K/mm3 (4.0-10.0)
[2023-02-10 13:33] LABS: POTASSIUM 3.9 mmol/L (3.5-5.1)
[2023-02-10 13:36] LABS: ALBUMIN 2.6 g/dl (3.4-5.0); BLOOD UREA NITROGEN 44.3 mg/dL (7-18)
[2023-02-10 13:39] LABS: CREATININE 1.6 mg/dL (0.55-1.3); PHOSPHOROUS 4.8 mg/dL (2.5-4.9)
[2023-02-10 13:40] LABS: BILIRUBIN,TOTAL 0.4 mg/dL (0.2-1); TOT PROT 5.2 g/dl (6.4-8.2)
[2023-02-10 13:44] LABS: ANISOCYTOSIS 1+; MACROCYTOSIS 0
[2023-02-10 13:44] LABS: CALCIUM 8.3 mg/dL (8.5-10.1)
[2023-02-10] MEDS ORDERED: FUROSEMIDE 40 MG/4 ML INJECTABLE VIAL IVPUSH ONE (16:05)
[2023-02-10] MEDS: FENTANYL NS IVPB 500 MCG/100 ML BAG IVPB SCH (16:24)
[2023-02-10] MEDS ORDERED: SODIUM CHLORIDE FOR INHALATION 3 ML VIAL.NEB IH PRN (16:36)
[2023-02-10 17:38] LABS: ARTERIAL BLD GAS O2 SATURATION 99.1 % (95-98); ARTERIAL BLOOD GAS BASE EXCESS -6.8 mmol/L (-2-2); ARTERIAL BLOOD GAS pH 7.338 (7.350-7.450)
[2023-02-10 17:45] LABS: ALLENS TEST POSITIVE
[2023-02-10] MEDS: CHLORHEXIDINE GLUCONATE 4% CLEANSER FOR DECOLONIZATION TP SCH (21:06)
[2023-02-10 21:32] LABS: ARTERIAL BLOOD GAS BASE EXCESS -4.7 mmol/L (-2-2); ARTERIAL BLOOD GAS PO2 66.8 mmHg (80-100); ARTERIAL BLOOD GAS pH 7.395 (7.350-7.450)
[2023-02-10 21:33] LABS: ALLENS TEST POSITIVE; ARTERIAL BLD GAS O2 SATURATION 93.5 % (95-98); VENT MODE S/T
[2023-02-10 21:34] LABS: VENT RATE 14
[2023-02-11] MEDS: methylPREDNISolone NA SUCC 40 MG/1 ML VIAL IVPUSH SCH ×3 (01:32→17:58)
[2023-02-11] MEDS: PIPERACILLIN/TAZOB 3.375 GM 3.375 GM in DEXTROSE 5%-WATER - 50 ML IVPB SCH ×4 (02:02→21:31)
[2023-02-11 06:51] LABS: ARTERIAL BLD GAS O2 SATURATION 97.5 % (95-98); ARTERIAL BLOOD GAS BASE EXCESS -6.5 mmol/L (-2-2); ARTERIAL BLOOD GAS PO2 100.3 mmHg (80-100); ARTERIAL BLOOD GAS pH 7.366 (7.350-7.450)
[2023-02-11 07:06] LABS: ALLENS TEST POSITIVE
[2023-02-11 07:07] LABS: VENT RATE 14
[2023-02-11] MEDS: ALBUTEROL SO4 0.083% IH SOL 2.5 MG/3 ML VIAL.NEB. NEB SCH ×4 (08:20→20:58)
[2023-02-11] MEDS: ACETYLCYSTEINE 20% 200MG/ML 4 ML VIAL *FOR ORAL / INH USE ONLY NEB SCH ×4 (08:20→20:57)
[2023-02-11 08:33] LABS: HEMOGLOBIN 10.8 GM/dL (11.7-16.9); MCH 27.9 pg (25.7-33.7); MCHC 32.9 g/dl (32.0-35.9); MEAN CELL VOLUME 84.9 fl (80-96); MEAN PLT VOLUME 8.3 fl (7.5-11.1); PLATELET COUNT 221 10^3/uL (134-434); RBC 3.89 M/mm3 (4.00-5.60); RDW 18.5 % (11.9-15.9)
[2023-02-11 08:46] LABS: POTASSIUM 4.3 mmol/L (3.5-5.1)
[2023-02-11 08:47] LABS: CALCIUM 9.4 mg/dL (8.5-10.1)
[2023-02-11 08:48] LABS: BLOOD UREA NITROGEN 46.9 mg/dL (7-18); MAGNESIUM 2.4 mg/dL (1.8-2.4)
[2023-02-11 08:51] LABS: CREATININE 1.9 mg/dL (0.55-1.3); PHOSPHOROUS 4.9 mg/dL (2.5-4.9)
[2023-02-11 08:52] LABS: BILIRUBIN,TOTAL 0.7 mg/dL (0.2-1)
[2023-02-11 08:53] LABS: TOT PROT 6.2 g/dl (6.4-8.2)
[2023-02-11 09:27] LABS: ANISOCYTOSIS 0; MACROCYTOSIS 0
[2023-02-11] MEDS: ENOXAPARIN NA (PORCINE) 40 MG/0.4 ML DISP.SYRIN SQ SCH (09:49)
[2023-02-11] MEDS: POLYETHYLENE GLYCOL (HEALTHYLAX) 3350 17 GM PACKET PO SCH ×2 (09:49→21:32)
[2023-02-11] MEDS: guaiFENesin 600 MG TABLET.ER (FP) PO SCH ×2 (09:49→21:31)
[2023-02-11] MEDS: PANTOPRAZOLE SODIUM 40 MG VIAL IVPUSH SCH (10:03)
[2023-02-11] MEDS ORDERED: DEXTROSE 5%-NORMAL SALINE 1,000 ML IV SCH (10:30)
[2023-02-11] MEDS: FENTANYL NS IVPB 500 MCG/100 ML BAG IVPB SCH (14:41)
[2023-02-11] MEDS: MUPIROCIN 2% TOPICAL OINTMENT FOR DECOLONIZATION NS SCH ×2 (14:59→21:31)
[2023-02-11] MEDS ORDERED: ALBUTEROL SO4 HFA INHALER IH PRN (15:39)
[2023-02-11] MEDS: CARVEDILOL 3.125 MG TABLET (FP) PO SCH (21:31)
[2023-02-11] MEDS: ATORVASTATIN CA 40 MG TABLET (FP) PO SCH (21:32)
[2023-02-11] MEDS: BUDESONIDE/FORMETEROL FUMARATE 160/4.5 mcg INHALER IH SCH (21:32)
[2023-02-11] MEDS: CHLORHEXIDINE GLUCONATE 4% CLEANSER FOR DECOLONIZATION TP SCH (21:32)
[2023-02-12] MEDS: methylPREDNISolone NA SUCC 40 MG/1 ML VIAL IVPUSH SCH ×2 (01:01→09:59)
[2023-02-12] MEDS: PIPERACILLIN/TAZOB 3.375 GM 3.375 GM in DEXTROSE 5%-WATER - 50 ML IVPB SCH ×4 (02:38→21:47)
[2023-02-12 07:29] LABS: HEMOGLOBIN 8.9 GM/dL (11.7-16.9); MCH 27.9 pg (25.7-33.7); MEAN CELL VOLUME 84.5 fl (80-96); MEAN PLT VOLUME 8.5 fl (7.5-11.1); PLATELET COUNT 175 10^3/uL (134-434); RBC 3.19 M/mm3 (4.00-5.60); WHITE BLOOD COUNT 15.7 K/mm3 (4.0-10.0)
[2023-02-12 07:48] LABS: POTASSIUM 3.6 mmol/L (3.5-5.1)
[2023-02-12 08:01] LABS: BLOOD UREA NITROGEN 50.6 mg/dL (7-18)
[2023-02-12 08:03] LABS: BILIRUBIN,TOTAL 0.5 mg/dL (0.2-1); TOT PROT 4.9 g/dl (6.4-8.2)
[2023-02-12 08:04] LABS: CALCIUM 8.3 mg/dL (8.5-10.1); CREATININE 1.5 mg/dL (0.55-1.3); MAGNESIUM 1.9 mg/dL (1.8-2.4)
[2023-02-12 08:24] LABS: ALBUMIN 2.3 g/dl (3.4-5.0)
[2023-02-12] MEDS: ALBUTEROL SO4 0.083% IH SOL 2.5 MG/3 ML VIAL.NEB. NEB SCH ×4 (08:35→21:00)
[2023-02-12] MEDS: ACETYLCYSTEINE 20% 200MG/ML 4 ML VIAL *FOR ORAL / INH USE ONLY NEB SCH ×4 (08:35→21:00)
[2023-02-12] MEDS: guaiFENesin 600 MG TABLET.ER (FP) PO SCH ×2 (09:59→21:48)
[2023-02-12] MEDS: CARVEDILOL 3.125 MG TABLET (FP) PO SCH ×2 (09:59→21:47)
[2023-02-12] MEDS: PANTOPRAZOLE SODIUM 40 MG VIAL IVPUSH SCH (10:00)
[2023-02-12] MEDS: BUDESONIDE/FORMETEROL FUMARATE 160/4.5 mcg INHALER IH SCH ×2 (10:00→21:48)
[2023-02-12] MEDS: POLYETHYLENE GLYCOL (HEALTHYLAX) 3350 17 GM PACKET PO SCH ×2 (10:00→21:47)
[2023-02-12] MEDS: MUPIROCIN 2% TOPICAL OINTMENT FOR DECOLONIZATION NS SCH ×2 (10:20→21:47)
[2023-02-12] MEDS: HEPARIN NA (PORCINE) 5,000 UNITS/ML 1ML VIAL SQ SCH ×2 (14:29→21:47)
[2023-02-12] MEDS: ATORVASTATIN CA 40 MG TABLET (FP) PO SCH (21:47)
[2023-02-12] MEDS: CHLORHEXIDINE GLUCONATE 4% CLEANSER FOR DECOLONIZATION TP SCH (21:48)
[2023-02-13] MEDS: PIPERACILLIN/TAZOB 3.375 GM 3.375 GM in DEXTROSE 5%-WATER - 50 ML IVPB SCH ×4 (03:09→21:19)
[2023-02-13] MEDS: HEPARIN NA (PORCINE) 5,000 UNITS/ML 1ML VIAL SQ SCH ×3 (05:31→21:20)
[2023-02-13 07:11] LABS: HEMATOCRIT 25.6 % (35.4-49); HEMOGLOBIN 8.5 GM/dL (11.7-16.9); MEAN CELL VOLUME 84.8 fl (80-96); MEAN PLT VOLUME 8.8 fl (7.5-11.1); PLATELET COUNT 159 10^3/uL (134-434); RBC 3.02 M/mm3 (4.00-5.60); RDW 18.3 % (11.9-15.9)
[2023-02-13 07:30] LABS: POTASSIUM 3.5 mmol/L (3.5-5.1)
[2023-02-13 07:33] LABS: ALBUMIN 2.2 g/dl (3.4-5.0); BLOOD UREA NITROGEN 46.8 mg/dL (7-18); CALCIUM 8.3 mg/dL (8.5-10.1); MAGNESIUM 1.9 mg/dL (1.8-2.4)
[2023-02-13 07:36] LABS: CREATININE 1.2 mg/dL (0.55-1.3); PHOSPHOROUS 2.2 mg/dL (2.5-4.9)
[2023-02-13 07:38] LABS: BILIRUBIN,TOTAL 0.5 mg/dL (0.2-1); TOT PROT 4.6 g/dl (6.4-8.2)
[2023-02-13] MEDS: ALBUTEROL SO4 0.083% IH SOL 2.5 MG/3 ML VIAL.NEB. NEB SCH ×4 (08:05→21:00)
[2023-02-13] MEDS: ACETYLCYSTEINE 20% 200MG/ML 4 ML VIAL *FOR ORAL / INH USE ONLY NEB SCH ×4 (08:05→21:00)
[2023-02-13 08:38] LABS: ANISOCYTOSIS 0; MACROCYTOSIS 0
[2023-02-13] MEDS: BUDESONIDE/FORMETEROL FUMARATE 160/4.5 mcg INHALER IH SCH ×2 (09:09→21:21)
[2023-02-13] MEDS: PANTOPRAZOLE SODIUM 40 MG VIAL IVPUSH SCH (09:09)
[2023-02-13] MEDS: CARVEDILOL 3.125 MG TABLET (FP) PO SCH (09:09)
[2023-02-13] MEDS: MUPIROCIN 2% TOPICAL OINTMENT FOR DECOLONIZATION NS SCH (09:09)
[2023-02-13] MEDS: POLYETHYLENE GLYCOL (HEALTHYLAX) 3350 17 GM PACKET PO SCH ×2 (09:09→21:19)
[2023-02-13] MEDS: guaiFENesin 600 MG TABLET.ER (FP) PO SCH ×2 (09:09→21:20)
[2023-02-13] MEDS: methylPREDNISolone NA SUCC 40 MG/1 ML VIAL IVPUSH SCH (09:09)
[2023-02-13 14:00] VITALS: BMI 19.1
[2023-02-13] MEDS: CHLORHEXIDINE GLUCONATE 4% CLEANSER FOR DECOLONIZATION TP SCH (21:20)
[2023-02-13] MEDS: ATORVASTATIN CA 40 MG TABLET (FP) PO SCH (21:20)
[2023-02-14] MEDS: PIPERACILLIN/TAZOB 3.375 GM 3.375 GM in DEXTROSE 5%-WATER - 50 ML IVPB SCH ×4 (02:24→21:11)
[2023-02-14] MEDS: HEPARIN NA (PORCINE) 5,000 UNITS/ML 1ML VIAL SQ SCH ×3 (06:36→21:12)
[2023-02-14] MEDS: ALBUTEROL SO4 0.083% IH SOL 2.5 MG/3 ML VIAL.NEB. NEB SCH ×4 (08:27→20:35)
[2023-02-14] MEDS: ACETYLCYSTEINE 20% 200MG/ML 4 ML VIAL *FOR ORAL / INH USE ONLY NEB SCH ×4 (08:27→20:35)
[2023-02-14] MEDS: guaiFENesin 600 MG TABLET.ER (FP) PO SCH ×2 (09:50→21:12)
[2023-02-14] MEDS: methylPREDNISolone NA SUCC 40 MG/1 ML VIAL IVPUSH SCH (09:50)
[2023-02-14] MEDS: POLYETHYLENE GLYCOL (HEALTHYLAX) 3350 17 GM PACKET PO SCH ×2 (09:50→21:11)
[2023-02-14] MEDS: PANTOPRAZOLE 40 MG TABLET PO SCH (09:50)
[2023-02-14] MEDS: BUDESONIDE/FORMETEROL FUMARATE 160/4.5 mcg INHALER IH SCH ×2 (09:51→21:16)
[2023-02-14] MEDS: TIOTROPIUM BROMIDE 2.5 MCG (SPIRIVA) RESPIMAT INHALER IH SCH (11:00)
[2023-02-14] MEDS ORDERED: METOPROLOL TARTRATE 25 MG TABLET (FP) PO ONE (15:05)
[2023-02-14 15:24] LABS: HEMATOCRIT 30.3 % (35.4-49); HEMOGLOBIN 9.7 GM/dL (11.7-16.9); MCH 27.3 pg (25.7-33.7); MCHC 32.1 g/dl (32.0-35.9); MEAN CELL VOLUME 84.9 fl (80-96); MEAN PLT VOLUME 9.1 fl (7.5-11.1); PLATELET COUNT 180 10^3/uL (134-434); RBC 3.57 M/mm3 (4.00-5.60); WHITE BLOOD COUNT 11.8 K/mm3 (4.0-10.0)
[2023-02-14 15:34] LABS: INR 1.04 (0.83-1.09); PROTHROMBIN TIME (PATIENT) 12.1 SEC (9.7-13.0)
[2023-02-14] MEDS ORDERED: AMIODARONE IN DEXTROSE,ISO-OSM 150 MG/100 ML BAG IVPB ONE (15:38)
[2023-02-14 15:47] LABS: POTASSIUM 4.3 mmol/L (3.5-5.1)
[2023-02-14 15:49] LABS: CALCIUM 8.3 mg/dL (8.5-10.1)
[2023-02-14 15:50] LABS: ALBUMIN 2.5 g/dl (3.4-5.0); BLOOD UREA NITROGEN 42.8 mg/dL (7-18); MAGNESIUM 1.9 mg/dL (1.8-2.4)
[2023-02-14 15:53] LABS: CREATININE 1.2 mg/dL (0.55-1.3); PHOSPHOROUS 2.2 mg/dL (2.5-4.9)
[2023-02-14 15:54] LABS: BILIRUBIN,TOTAL 0.6 mg/dL (0.2-1); TOT PROT 5.3 g/dl (6.4-8.2)
[2023-02-14] MEDS ORDERED: ACETAMINOPHEN 1000 MG/100 ML BAG IVPB PRN (16:02)
[2023-02-14] MEDS ORDERED: AMIODARONE IN DEXTROSE,ISO-OSM 360 MG/200 ML BAG IV SCH (16:15)
[2023-02-14] MEDS ORDERED: AMIODARONE IN DEXTROSE,ISO-OSM 360 MG/200 ML BAG IV ONE (16:15)
[2023-02-14] MEDS: ATORVASTATIN CA 40 MG TABLET (FP) PO SCH (21:12)
[2023-02-14] MEDS: CHLORHEXIDINE GLUCONATE 4% CLEANSER FOR DECOLONIZATION TP SCH (21:12)
[2023-02-14] MEDS: AMIODARONE IN DEXTROSE,ISO-OSM 360 MG/200 ML BAG IV SCH (21:20)
[2023-02-15] MEDS: PIPERACILLIN/TAZOB 3.375 GM 3.375 GM in DEXTROSE 5%-WATER - 50 ML IVPB SCH ×4 (02:42→21:03)
[2023-02-15] MEDS: HEPARIN NA (PORCINE) 5,000 UNITS/ML 1ML VIAL SQ SCH ×3 (06:38→21:03)
[2023-02-15 06:47] LABS: HEMOGLOBIN 8.8 GM/dL (11.7-16.9); MCHC 32.6 g/dl (32.0-35.9); MEAN PLT VOLUME 9.1 fl (7.5-11.1); PLATELET COUNT 140 10^3/uL (134-434); RBC 3.14 M/mm3 (4.00-5.60); WHITE BLOOD COUNT 16.8 K/mm3 (4.0-10.0)
[2023-02-15 07:12] LABS: POTASSIUM 5.1 mmol/L (3.5-5.1)
[2023-02-15 07:18] LABS: CALCIUM 8.2 mg/dL (8.5-10.1)
[2023-02-15 07:19] LABS: ALBUMIN 2.2 g/dl (3.4-5.0); MAGNESIUM 1.9 mg/dL (1.8-2.4)
[2023-02-15 07:22] LABS: CREATININE 1.2 mg/dL (0.55-1.3)
[2023-02-15 07:23] LABS: BILIRUBIN,TOTAL 0.5 mg/dL (0.2-1); TOT PROT 4.6 g/dl (6.4-8.2)
[2023-02-15] MEDS: ACETYLCYSTEINE 20% 200MG/ML 4 ML VIAL *FOR ORAL / INH USE ONLY NEB SCH ×4 (08:00→20:00)
[2023-02-15] MEDS: ALBUTEROL SO4 0.083% IH SOL 2.5 MG/3 ML VIAL.NEB. NEB SCH ×2 (08:00→11:50)
[2023-02-15 08:26] LABS: ANISOCYTOSIS 0; HELMET CELLS 0; HOWELL-JOLLY BODIES 0; MACROCYTOSIS 0; OVALOCYTE 0; ROULEAU 0; SICKELED CELLS 0; TARGET CELLS 0; TEAR DROP CELLS 0; TOXIC GRANULATION 0
[2023-02-15] MEDS: predniSONE 20 MG TABLET (UD) PO SCH (10:21)
[2023-02-15] MEDS: POLYETHYLENE GLYCOL (HEALTHYLAX) 3350 17 GM PACKET PO SCH ×2 (10:21→21:04)
[2023-02-15] MEDS: PANTOPRAZOLE 40 MG TABLET PO SCH (10:21)
[2023-02-15] MEDS: guaiFENesin 600 MG TABLET.ER (FP) PO SCH ×2 (10:21→21:03)
[2023-02-15] MEDS: TIOTROPIUM BROMIDE 2.5 MCG (SPIRIVA) RESPIMAT INHALER IH SCH (10:22)
[2023-02-15] MEDS: BUDESONIDE/FORMETEROL FUMARATE 160/4.5 mcg INHALER IH SCH ×2 (10:22→21:04)
[2023-02-15] MEDS: AMIODARONE IN DEXTROSE,ISO-OSM 360 MG/200 ML BAG IV SCH ×3 (10:26→22:02)
[2023-02-15] MEDS ORDERED: PIPERACILLIN/TAZOBACTAM 3.375 GM VIAL IVPB ONE (12:24)
[2023-02-15] MEDS: ALBUTEROL SO4 0.083% IH SOL 2.5 MG/3 ML VIAL.NEB. NEB PRN (15:29)
[2023-02-15] MEDS ORDERED: ACETAMINOPHEN 1000 MG/100 ML BAG IVPB ONE ×2 (20:31→20:36)
[2023-02-15] MEDS: ATORVASTATIN CA 40 MG TABLET (FP) PO SCH (21:03)
[2023-02-15] MEDS: CHLORHEXIDINE GLUCONATE 4% CLEANSER FOR DECOLONIZATION TP SCH (21:04)
[2023-02-16] MEDS: PIPERACILLIN/TAZOB 3.375 GM 3.375 GM in DEXTROSE 5%-WATER - 50 ML IVPB SCH ×2 (02:02→08:46)
[2023-02-16] MEDS: ACETAMINOPHEN 1000 MG/100 ML BAG IVPB PRN ×3 (05:22→22:13)
[2023-02-16] MEDS: HEPARIN NA (PORCINE) 5,000 UNITS/ML 1ML VIAL SQ SCH ×3 (05:23→22:13)
[2023-02-16 07:33] LABS: MCH 28.2 pg (25.7-33.7); MCHC 33.2 g/dl (32.0-35.9); MEAN CELL VOLUME 84.9 fl (80-96); MEAN PLT VOLUME 9.5 fl (7.5-11.1); PLATELET COUNT 136 10^3/uL (134-434); RBC 2.83 M/mm3 (4.00-5.60); RDW 19.1 % (11.9-15.9); WHITE BLOOD COUNT 13.8 K/mm3 (4.0-10.0)
[2023-02-16] MEDS: ALBUTEROL SO4 0.083% IH SOL 2.5 MG/3 ML VIAL.NEB. NEB PRN ×2 (07:40→21:38)
[2023-02-16] MEDS: ACETYLCYSTEINE 20% 200MG/ML 4 ML VIAL *FOR ORAL / INH USE ONLY NEB SCH ×4 (07:40→21:37)
[2023-02-16 07:41] LABS: POTASSIUM 4.5 mmol/L (3.5-5.1)
[2023-02-16 07:49] LABS: ALBUMIN 2.1 g/dl (3.4-5.0); BLOOD UREA NITROGEN 35.6 mg/dL (7-18); CALCIUM 7.3 mg/dL (8.5-10.1); MAGNESIUM 1.7 mg/dL (1.8-2.4)
[2023-02-16 07:50] LABS: CREATININE 1.1 mg/dL (0.55-1.3)
[2023-02-16 07:51] LABS: BILIRUBIN,TOTAL 0.2 mg/dL (0.2-1)
[2023-02-16 07:52] LABS: PHOSPHOROUS 1.6 mg/dL (2.5-4.9); TOT PROT 4.5 g/dl (6.4-8.2)
[2023-02-16 07:54] LABS: BILIRUBIN,DIRECT 0.1 mg/dL (0.0-0.2)
[2023-02-16 08:59] LABS: ANISOCYTOSIS 1+; MACROCYTOSIS 0
[2023-02-16] MEDS: POLYETHYLENE GLYCOL (HEALTHYLAX) 3350 17 GM PACKET PO SCH ×2 (09:17→22:13)
[2023-02-16] MEDS: PANTOPRAZOLE 40 MG TABLET PO SCH (09:17)
[2023-02-16] MEDS: guaiFENesin 600 MG TABLET.ER (FP) PO SCH ×2 (09:18→22:12)
[2023-02-16] MEDS: predniSONE 20 MG TABLET (UD) PO SCH (09:18)
[2023-02-16] MEDS: TIOTROPIUM BROMIDE 2.5 MCG (SPIRIVA) RESPIMAT INHALER IH SCH (10:12)
[2023-02-16] MEDS: BUDESONIDE/FORMETEROL FUMARATE 160/4.5 mcg INHALER IH SCH ×2 (10:12→22:19)
[2023-02-16] MEDS ORDERED: MAGNESIUM 2GM/50ML STERILE WATER IVPB IVPB ONE (13:28)
[2023-02-16] MEDS: NAPH,MB-DB/K PH,MBDB POWDER PACKET PO SCH ×3 (15:08→22:59)
[2023-02-16] MEDS: AMIODARONE IN DEXTROSE,ISO-OSM 360 MG/200 ML BAG IV SCH (20:00)
[2023-02-16] MEDS: ATORVASTATIN CA 40 MG TABLET (FP) PO SCH (22:12)
[2023-02-16] MEDS: CHLORHEXIDINE GLUCONATE 4% CLEANSER FOR DECOLONIZATION TP SCH (22:12)
[2023-02-17] MEDS: HEPARIN NA (PORCINE) 5,000 UNITS/ML 1ML VIAL SQ SCH (06:26)
[2023-02-17 07:22] LABS: HEMOGLOBIN 8.3 GM/dL (11.7-16.9); MCH 28.4 pg (25.7-33.7); MCHC 33.4 g/dl (32.0-35.9); MEAN PLT VOLUME 8.7 fl (7.5-11.1); PLATELET COUNT 146 10^3/uL (134-434); RBC 2.94 M/mm3 (4.00-5.60); RDW 19.5 % (11.9-15.9)
[2023-02-17 07:47] LABS: POTASSIUM 4.9 mmol/L (3.5-5.1)
[2023-02-17 08:06] LABS: ALBUMIN 2.3 g/dl (3.4-5.0); BLOOD UREA NITROGEN 32.4 mg/dL (7-18); CALCIUM 8.3 mg/dL (8.5-10.1); MAGNESIUM 2.2 mg/dL (1.8-2.4)
[2023-02-17 08:09] LABS: CREATININE 1.1 mg/dL (0.55-1.3)
[2023-02-17 08:11] LABS: BILIRUBIN,TOTAL 0.3 mg/dL (0.2-1); TOT PROT 4.9 g/dl (6.4-8.2)
[2023-02-17] MEDS: ACETYLCYSTEINE 20% 200MG/ML 4 ML VIAL *FOR ORAL / INH USE ONLY NEB SCH (08:40)
[2023-02-17] MEDS: ALBUTEROL SO4 0.083% IH SOL 2.5 MG/3 ML VIAL.NEB. NEB PRN (08:41)
[2023-02-17 08:42] LABS: ANISOCYTOSIS 1+; MACROCYTOSIS 0
[2023-02-17] MEDS: POLYETHYLENE GLYCOL (HEALTHYLAX) 3350 17 GM PACKET PO SCH (10:33)
[2023-02-17] MEDS: PANTOPRAZOLE 40 MG TABLET PO SCH (10:33)
[2023-02-17] MEDS: predniSONE 20 MG TABLET (UD) PO SCH (10:33)
[2023-02-17] MEDS: guaiFENesin 600 MG TABLET.ER (FP) PO SCH (10:33)
[2023-02-17] MEDS: BUDESONIDE/FORMETEROL FUMARATE 160/4.5 mcg INHALER IH SCH (10:34)
[2023-02-17] MEDS: TIOTROPIUM BROMIDE 2.5 MCG (SPIRIVA) RESPIMAT INHALER IH SCH (10:34)
[2023-02-17] MEDS ORDERED: ACETAMINOPHEN 1000 MG/100 ML BAG IVPB ONE (13:15)
[2023-02-17 13:58] VITALS: BP 131/69; PULSE 98; RESP 24; TEMP 97.8
[2023-02-18] MEDS ORDERED: ASPIRIN COATED 81 MG TABLET.EC PO SCH (10:00)
== END 2023-02-17 14:19 | disposition short-term general hospital (02) | DRG 871 ==
LOC: JER 12:56 → JERBED 14:43 → JICU 16:58 → J4W 02-16 17:49
PROVIDERS: ADMIT Internal Medicine Pulmonary Disease; ATTEND Internal Medicine
PROC: 5A1945Z Respiratory Ventilation, 24-96 Consecutive Hours (ICD-10-PCS; principal; 2023-02-09)
PROC: 0BH17EZ Insertion of Endotracheal Airway into Trachea, Via Natural or Artificial Opening (ICD-10-PCS; 2023-02-09)
DX: A41.9 Sepsis, unspecified organism (principal); J18.9 Pneumonia, unspecified organism; J96.21 Acute and chronic respiratory failure with hypoxia; N17.0 Acute kidney failure with tubular necrosis; J44.1 Chronic obstructive pulmonary disease with (acute) exacerbation; I50.20 Unspecified systolic (congestive) heart failure; E87.20 Acidosis, unspecified; I47.20 Ventricular tachycardia, unspecified; I69.354 Hemiplegia and hemiparesis following cerebral infarction affecting left non-dominant side; I13.0 Hypertensive heart and chronic kidney disease with heart failure and stage 1 through stage 4 chronic kidney disease, or unspecified chronic kidney disease; Z85.118 Personal history of other malignant neoplasm of bronchus and lung; I25.10 Atherosclerotic heart disease of native coronary artery without angina pectoris; I49.8 Other specified cardiac arrhythmias; E78.5 Hyperlipidemia, unspecified; Z95.1 Presence of aortocoronary bypass graft; N18.9 Chronic kidney disease, unspecified
CPT/HCPCS: 0241U-QW; 31500; 36415; 36600; 71045-TC-FY; 80048; 80053; 80076; 82272; 82607; 82746; 82803; 82962; 83605; 83735; 83880; 84100; 84443; 84484; 85025; 85027; 85610; 87040; 87070; 87077; 87081; 87205; 87324; 87449; 87899; 93005; 93010; 94002; 94640; 94660; 97161-GP; 99285-25; G0480; J0282; J1644

== ENCOUNTER 2023-03-02 14:49 | Inpatient (IN) | payer OTHER ==
[2023-03-02] MEDS ORDERED: ACETAMINOPHEN 1000 MG/100 ML BAG IVPB ONE (15:20)
[2023-03-02] MEDS ORDERED: ACETAMINOPHEN INJECTION 100 ML IVPB ONE (15:28)
[2023-03-02 16:36] LABS: BASO % 0.3 % (0-2.0); HEMATOCRIT 23.2 % (35.4-49); HEMOGLOBIN 7.5 GM/dL (11.7-16.9); LYMPH % 4.1 % (8-40); MCH 28.6 pg (25.7-33.7); MCHC 32.4 g/dl (32.0-35.9); MEAN CELL VOLUME 88.4 fl (80-96); MONO % 5.4 % (3.8-10.2); NEUT % 89.2 % (42.8-82.8); RBC 2.63 M/mm3 (4.00-5.60); RDW 23.4 % (11.9-15.9); WHITE BLOOD COUNT 7.4 K/mm3 (4.0-10.0)
[2023-03-02 16:39] LABS: VENOUS BASE EXCESS -2.4 mmol/L (-2-2); VENOUS O2 SATURATION 64.4 % (70-80); VENOUS PCO2 37.5 mmHg (38-52); VENOUS PH 7.391 (7.310-7.410)
[2023-03-02 17:25] LABS: EPI CELLS 4 /uL (0-25.1); HYALINE CASTS 1 /uL (0-3.1); PH,URINE 6.5 (5.0-8.0); URINE APPEARANCE CLEAR; URINE BACTERIA 0 /uL (0-1359); URINE BILIRUBIN NEGATIVE (NEGATIVE); URINE COLOR YELLOW; URINE GLUCOSE (UA) NEGATIVE (NEGATIVE); URINE KETONE TRACE (NEGATIVE); URINE LEUK ESTERASE NEGATIVE (NEGATIVE); URINE NITRITE NEGATIVE (NEGATIVE); URINE PROTEIN 2+ (NEGATIVE); URINE UROBILINOGEN 0.2 mg/dL (0.2-1.0); URINE WBC 30 /uL (0-25.8)
[2023-03-02 17:28] LABS: POTASSIUM 3.8 mmol/L (3.5-5.1)
[2023-03-02 17:30] LABS: CALCIUM 8.2 mg/dL (8.5-10.1)
[2023-03-02 17:31] LABS: ALBUMIN 2.1 g/dl (3.4-5.0); BLOOD UREA NITROGEN 38.4 mg/dL (7-18); MAGNESIUM 2.1 mg/dL (1.8-2.4)
[2023-03-02 17:34] LABS: CREATININE 1.9 mg/dL (0.55-1.3); PHOSPHOROUS 3.4 mg/dL (2.5-4.9)
[2023-03-02 17:35] LABS: BILIRUBIN,TOTAL 0.6 mg/dL (0.2-1)
[2023-03-02 17:39] LABS: N-TERMINAL BNP 2632.5 pg/ml (5-125)
[2023-03-02 17:45] LABS: URINE RBC 32.9 /uL (0-23.9); YEAST PRESENT (NEGATIVE)
[2023-03-02 17:47] LABS: ANISOCYTOSIS 3+; MACROCYTOSIS 0; OVALOCYTE 1+; TARGET CELLS 1+
[2023-03-02 17:48] LABS: MEAN PLT VOLUME 7.5 fl (7.5-11.1); PLATELET COUNT 162 10^3/uL (134-434)
[2023-03-03] MEDS ORDERED: ACETAMINOPHEN 1000 MG/100 ML BAG IVPB PRN ×3 (05:06→07:56)
[2023-03-03] MEDS ORDERED: PATIENT'S OWN MEDICATION (NON-FORMULARY) (Oxycodone Hcl [Oxaydo] 5 MG Tablet.Orl) PO PRN (06:41)
[2023-03-03] MEDS ORDERED: BUDESONIDE 0.5 MG/2 ML INH SUSP VIAL NEB SCH (06:45)
[2023-03-03] MEDS ORDERED: ALBUTEROL SO4 2.5/IPRATROPIUM 0.5 INH SOL 3 ML VIAL.NEB. NEB SCH (06:45)
[2023-03-03] MEDS ORDERED: FUROSEMIDE 40 MG/4 ML INJECTABLE VIAL IVPUSH ONE (07:00)
[2023-03-03] MEDS: ALBUTEROL SO4 2.5/IPRATROPIUM 0.5 INH SOL 3 ML VIAL.NEB. NEB SCH ×4 (09:11→19:40)
[2023-03-03] MEDS: BUDESONIDE 0.5 MG/2 ML INH SUSP VIAL NEB SCH ×2 (09:12→19:45)
[2023-03-03 09:23] LABS: BASO % 0.4 % (0-2.0); EOS % 0.6 % (0-4.5); HEMATOCRIT 24.2 % (35.4-49); HEMOGLOBIN 7.9 GM/dL (11.7-16.9); LYMPH % 3.8 % (8-40); MCH 29.2 pg (25.7-33.7); MCHC 32.7 g/dl (32.0-35.9); MEAN CELL VOLUME 89.4 fl (80-96); MEAN PLT VOLUME 7.9 fl (7.5-11.1); MONO % 5.1 % (3.8-10.2); NEUT % 90.1 % (42.8-82.8); PLATELET COUNT 186 10^3/uL (134-434); RBC 2.71 M/mm3 (4.00-5.60); RDW 23.7 % (11.9-15.9)
[2023-03-03 09:44] LABS: WHITE BLOOD COUNT 8.9 K/mm3 (4.0-10.0)
[2023-03-03 09:56] LABS: CHLORIDE 101 mmol/L (98-107); POTASSIUM 3.8 mmol/L (3.5-5.1); SODIUM 136 mmol/L (136-145)
[2023-03-03 09:59] LABS: ANION GAP 16 mmol/L (4-13); BLOOD UREA NITROGEN 33.5 mg/dL (7-18); CALCIUM 8.3 mg/dL (8.5-10.1); CO2 19 mmol/L (21-32)
[2023-03-03 10:00] LABS: ALBUMIN 2.2 g/dl (3.4-5.0); MAGNESIUM 2.2 mg/dL (1.8-2.4)
[2023-03-03] MEDS ORDERED: guaiFENesin/D-METHORPHAN HB 10 ML UNIT-DOSE CUPS PO SCH (10:00)
[2023-03-03] MEDS ORDERED: metoPROLOL SUCCINATE 25 MG TAB.SR.24H (FP) PO SCH (10:00)
[2023-03-03] MEDS ORDERED: POLYETHYLENE GLYCOL (HEALTHYLAX) 3350 17 GM PACKET PO SCH (10:00)
[2023-03-03 10:02] LABS: PHOSPHOROUS 3.4 mg/dL (2.5-4.9); SGPT/ALT 30 U/L (13-61)
[2023-03-03 10:03] LABS: CREATININE 1.7 mg/dL (0.55-1.3); SGOT/AST 52 U/L (15-37)
[2023-03-03 10:04] LABS: BILIRUBIN,TOTAL 0.4 mg/dL (0.2-1); TOT PROT 5.2 g/dl (6.4-8.2)
[2023-03-03] MEDS: methylPREDNISolone NA SUCC 40 MG/1 ML VIAL IVPUSH SCH ×3 (10:16→22:26)
[2023-03-03] MEDS: FOLIC ACID 1 MG TABLET (FP) PO SCH (10:16)
[2023-03-03] MEDS: CLOPIDOGREL BISULFATE 75 MG TABLET (FP) PO SCH (10:16)
[2023-03-03 10:17] LABS: ALK PHOS 128 U/L (45-117)
[2023-03-03] MEDS: oxyCODONE HCL 5 MG TABLET PO PRN ×2 (10:17→22:58)
[2023-03-03 10:20] LABS: GLUCOSE,RANDOM 34 mg/dL (74-106)
[2023-03-03] MEDS ORDERED: DEXTROSE 50%-WATER 25 GM/50 ML DISP.SYRIN ONE (10:38)
[2023-03-03] MEDS ORDERED: DEXTROSE 50%-WATER 25 GM/50 ML DISP.SYRIN IVPUSH ONE (11:00)
[2023-03-03] MEDS ORDERED: HEPARIN NA (PORCINE) 5,000 UNITS/ML 1ML VIAL SQ SCH (14:00)
[2023-03-03] MEDS ORDERED: PIPERACILLIN/TAZOB 2.25 GM 2.25 GM in DEXTROSE 5%-WATER - 50 ML IVPB SCH ×2 (15:30→15:45)
[2023-03-03] MEDS: ALBUTEROL SO4 HFA INHALER IH SCH ×2 (17:04→18:50)
[2023-03-03] MEDS: AMINO ACIDS/PROTEIN HYDROLYS 30 ML LIQUID.PKT PO SCH (18:43)
[2023-03-03] MEDS ORDERED: PIPERACILLIN/TAZOB 3.375 GM 3.375 GM in DEXTROSE 5%-WATER - 50 ML IVPB SCH (20:45)
[2023-03-03] MEDS ORDERED: DEXTROSE 50%-WATER 25 GM/50 ML DISP.SYRIN IVPUSH PRN (20:46)
[2023-03-03] MEDS ORDERED: ATORVASTATIN CA 40 MG TABLET (FP) PO SCH (22:00)
[2023-03-03] MEDS: PIPERACILLIN/TAZOB 3.375 GM 3.375 GM in DEXTROSE 5%-WATER - 50 ML IVPB SCH (22:26)
[2023-03-03] MEDS: ATORVASTATIN CA 80 MG TABLET (FP) PO SCH (22:26)
[2023-03-03] MEDS: TAMSULOSIN HCL 0.4 MG CAP PO SCH (22:26)
[2023-03-04] MEDS: ENOXAPARIN NA (PORCINE) 40 MG/0.4 ML DISP.SYRIN SQ SCH ×3 (00:08→20:34)
[2023-03-04] MEDS: ALBUTEROL SO4 HFA INHALER IH SCH ×4 (00:09→18:01)
[2023-03-04] MEDS: methylPREDNISolone NA SUCC 40 MG/1 ML VIAL IVPUSH SCH ×3 (04:34→20:35)
[2023-03-04 07:36] LABS: INR 1.04 (0.83-1.09); PROTHROMBIN TIME (PATIENT) 12.1 SEC (9.7-13.0)
[2023-03-04 07:37] LABS: HEMATOCRIT 22.4 % (35.4-49); HEMOGLOBIN 7.6 GM/dL (11.7-16.9); MCH 29.7 pg (25.7-33.7); MCHC 33.9 g/dl (32.0-35.9); MEAN CELL VOLUME 87.7 fl (80-96); MEAN PLT VOLUME 7.3 fl (7.5-11.1); PLATELET COUNT 208 10^3/uL (134-434); RBC 2.55 M/mm3 (4.00-5.60); RDW 23.4 % (11.9-15.9)
[2023-03-04] MEDS: ALBUTEROL SO4 2.5/IPRATROPIUM 0.5 INH SOL 3 ML VIAL.NEB. NEB SCH ×4 (07:40→20:10)
[2023-03-04] MEDS: BUDESONIDE 0.5 MG/2 ML INH SUSP VIAL NEB SCH ×2 (07:40→20:10)
[2023-03-04 07:59] LABS: ALBUMIN 2.2 g/dl (3.4-5.0); CALCIUM 8.6 mg/dL (8.5-10.1)
[2023-03-04 08:00] LABS: BLOOD UREA NITROGEN 37.2 mg/dL (7-18); MAGNESIUM 2.2 mg/dL (1.8-2.4)
[2023-03-04 08:02] LABS: CREATININE 1.7 mg/dL (0.55-1.3)
[2023-03-04 08:03] LABS: PHOSPHOROUS 3.4 mg/dL (2.5-4.9)
[2023-03-04 08:04] LABS: BILIRUBIN,TOTAL 0.4 mg/dL (0.2-1); TOT PROT 5.6 g/dl (6.4-8.2)
[2023-03-04] MEDS ORDERED: FUROSEMIDE 40 MG/4 ML INJECTABLE VIAL IVPUSH SCH (10:00)
[2023-03-04] MEDS: CLOPIDOGREL BISULFATE 75 MG TABLET (FP) PO SCH (10:06)
[2023-03-04] MEDS: FOLIC ACID 1 MG TABLET (FP) PO SCH (10:06)
[2023-03-04] MEDS: PIPERACILLIN/TAZOB 3.375 GM 3.375 GM in DEXTROSE 5%-WATER - 50 ML IVPB SCH ×2 (10:11→15:58)
[2023-03-04] MEDS: AMINO ACIDS/PROTEIN HYDROLYS 30 ML LIQUID.PKT PO SCH ×3 (10:12→17:28)
[2023-03-04 10:34] LABS: ANISOCYTOSIS 1+; MACROCYTOSIS 1+
[2023-03-04] MEDS: oxyCODONE HCL 5 MG TABLET PO PRN ×2 (12:25→22:52)
[2023-03-04] MEDS: ATORVASTATIN CA 80 MG TABLET (FP) PO SCH (21:00)
[2023-03-04] MEDS: TAMSULOSIN HCL 0.4 MG CAP PO SCH (21:00)
[2023-03-05 00:59] LABS: EPI CELLS >36 /uL (0-25.1); HYALINE CASTS 10 /uL (0-3.1); PH,URINE 5.5 (5.0-8.0); URINE APPEARANCE CLOUDY; URINE BACTERIA 56 /uL (0-1359); URINE BILIRUBIN NEGATIVE (NEGATIVE); URINE COLOR YELLOW; URINE GLUCOSE (UA) NEGATIVE (NEGATIVE); URINE KETONE NEGATIVE (NEGATIVE); URINE LEUK ESTERASE 2+ (NEGATIVE); URINE NITRITE NEGATIVE (NEGATIVE); URINE PROTEIN 1+ (NEGATIVE); URINE RBC 18 /uL (0-23.9); URINE UROBILINOGEN 0.2 mg/dL (0.2-1.0); URINE WBC 74 /uL (0-25.8)
[2023-03-05] MEDS: PIPERACILLIN/TAZOB 3.375 GM 3.375 GM in DEXTROSE 5%-WATER - 50 ML IVPB SCH ×4 (02:02→23:47)
[2023-03-05] MEDS: ALBUTEROL SO4 HFA INHALER IH SCH ×5 (02:03→23:47)
[2023-03-05] MEDS: methylPREDNISolone NA SUCC 40 MG/1 ML VIAL IVPUSH SCH ×3 (03:49→21:45)
[2023-03-05] MEDS: BUDESONIDE 0.5 MG/2 ML INH SUSP VIAL NEB SCH ×2 (07:53→20:25)
[2023-03-05] MEDS: ALBUTEROL SO4 2.5/IPRATROPIUM 0.5 INH SOL 3 ML VIAL.NEB. NEB SCH ×4 (07:53→20:25)
[2023-03-05 07:59] LABS: HEMATOCRIT 23.7 % (35.4-49); HEMOGLOBIN 7.7 GM/dL (11.7-16.9); MCH 28.7 pg (25.7-33.7); MCHC 32.6 g/dl (32.0-35.9); MEAN CELL VOLUME 88.2 fl (80-96); MEAN PLT VOLUME 8.2 fl (7.5-11.1); PLATELET COUNT 265 10^3/uL (134-434); RBC 2.69 M/mm3 (4.00-5.60); RDW 23.7 % (11.9-15.9); WHITE BLOOD COUNT 10.7 K/mm3 (4.0-10.0)
[2023-03-05 08:12] LABS: POTASSIUM 3.7 mmol/L (3.5-5.1)
[2023-03-05 08:15] LABS: CALCIUM 8.5 mg/dL (8.5-10.1)
[2023-03-05 08:16] LABS: ALBUMIN 2.1 g/dl (3.4-5.0); BLOOD UREA NITROGEN 47.6 mg/dL (7-18); MAGNESIUM 2.4 mg/dL (1.8-2.4)
[2023-03-05 08:19] LABS: CREATININE 1.8 mg/dL (0.55-1.3); PHOSPHOROUS 3.4 mg/dL (2.5-4.9)
[2023-03-05 08:20] LABS: BILIRUBIN,TOTAL 0.3 mg/dL (0.2-1)
[2023-03-05 08:21] LABS: TOT PROT 5.5 g/dl (6.4-8.2)
[2023-03-05] MEDS: AMINO ACIDS/PROTEIN HYDROLYS 30 ML LIQUID.PKT PO SCH ×3 (09:09→17:24)
[2023-03-05] MEDS: CLOPIDOGREL BISULFATE 75 MG TABLET (FP) PO SCH (09:09)
[2023-03-05] MEDS: ENOXAPARIN NA (PORCINE) 40 MG/0.4 ML DISP.SYRIN SQ SCH ×2 (09:09→21:45)
[2023-03-05] MEDS: FOLIC ACID 1 MG TABLET (FP) PO SCH (09:09)
[2023-03-05] MEDS: oxyCODONE HCL 5 MG TABLET PO PRN ×2 (09:59→21:47)
[2023-03-05] MEDS: ATORVASTATIN CA 80 MG TABLET (FP) PO SCH (21:45)
[2023-03-05] MEDS: TAMSULOSIN HCL 0.4 MG CAP PO SCH (21:45)
[2023-03-06] MEDS: methylPREDNISolone NA SUCC 40 MG/1 ML VIAL IVPUSH SCH ×3 (04:16→21:43)
[2023-03-06] MEDS: ALBUTEROL SO4 HFA INHALER IH SCH ×3 (06:02→17:19)
[2023-03-06] MEDS: ALBUTEROL SO4 2.5/IPRATROPIUM 0.5 INH SOL 3 ML VIAL.NEB. NEB SCH ×4 (07:26→19:54)
[2023-03-06] MEDS: BUDESONIDE 0.5 MG/2 ML INH SUSP VIAL NEB SCH ×2 (07:26→19:54)
[2023-03-06] MEDS: AMINO ACIDS/PROTEIN HYDROLYS 30 ML LIQUID.PKT PO SCH ×3 (08:53→17:14)
[2023-03-06] MEDS: PIPERACILLIN/TAZOB 3.375 GM 3.375 GM in DEXTROSE 5%-WATER - 50 ML IVPB SCH ×2 (08:53→17:14)
[2023-03-06] MEDS: ENOXAPARIN NA (PORCINE) 40 MG/0.4 ML DISP.SYRIN SQ SCH ×2 (08:53→21:43)
[2023-03-06 09:04] LABS: HEMATOCRIT 23.3 % (35.4-49); HEMOGLOBIN 7.8 GM/dL (11.7-16.9); LYMPH % 1.4 % (8-40); MCH 29.3 pg (25.7-33.7); MCHC 33.6 g/dl (32.0-35.9); MEAN CELL VOLUME 87.4 fl (80-96); MEAN PLT VOLUME 8.3 fl (7.5-11.1); MONO % 4.4 % (3.8-10.2); NEUT % 94.2 % (42.8-82.8); PLATELET COUNT 299 10^3/uL (134-434); RBC 2.67 M/mm3 (4.00-5.60); RDW 23.9 % (11.9-15.9); WHITE BLOOD COUNT 10.9 K/mm3 (4.0-10.0)
[2023-03-06] MEDS: CLOPIDOGREL BISULFATE 75 MG TABLET (FP) PO SCH (09:12)
[2023-03-06] MEDS: FOLIC ACID 1 MG TABLET (FP) PO SCH (09:12)
[2023-03-06 09:37] LABS: CALCIUM 8.7 mg/dL (8.5-10.1)
[2023-03-06 09:38] LABS: BLOOD UREA NITROGEN 50.3 mg/dL (7-18)
[2023-03-06 09:44] LABS: CREATININE 1.5 mg/dL (0.55-1.3)
[2023-03-06 10:00] LABS: ANISOCYTOSIS 2+; MACROCYTOSIS 0
[2023-03-06] MEDS: FUROSEMIDE 40 MG/4 ML INJECTABLE VIAL IVPUSH SCH (10:43)
[2023-03-06] MEDS: POLYETHYLENE GLYCOL (HEALTHYLAX) 3350 17 GM PACKET PO SCH (12:26)
[2023-03-06] MEDS: TAMSULOSIN HCL 0.4 MG CAP PO SCH (21:43)
[2023-03-06] MEDS: ATORVASTATIN CA 80 MG TABLET (FP) PO SCH (21:44)
[2023-03-07] MEDS: PIPERACILLIN/TAZOB 3.375 GM 3.375 GM in DEXTROSE 5%-WATER - 50 ML IVPB SCH ×4 (00:17→23:02)
[2023-03-07] MEDS: ALBUTEROL SO4 HFA INHALER IH SCH ×4 (00:17→17:07)
[2023-03-07] MEDS: methylPREDNISolone NA SUCC 40 MG/1 ML VIAL IVPUSH SCH ×3 (03:51→21:49)
[2023-03-07] MEDS: BUDESONIDE 0.5 MG/2 ML INH SUSP VIAL NEB SCH ×2 (07:40→20:09)
[2023-03-07] MEDS: ALBUTEROL SO4 2.5/IPRATROPIUM 0.5 INH SOL 3 ML VIAL.NEB. NEB SCH ×4 (07:50→20:09)
[2023-03-07 08:43] LABS: HEMATOCRIT 22.5 % (35.4-49); HEMOGLOBIN 7.4 GM/dL (11.7-16.9); MCH 28.6 pg (25.7-33.7); MEAN CELL VOLUME 86.8 fl (80-96); MEAN PLT VOLUME 8.4 fl (7.5-11.1); PLATELET COUNT 322 10^3/uL (134-434); RBC 2.59 M/mm3 (4.00-5.60); RDW 22.9 % (11.9-15.9); WHITE BLOOD COUNT 12.8 K/mm3 (4.0-10.0)
[2023-03-07] MEDS: ENOXAPARIN NA (PORCINE) 40 MG/0.4 ML DISP.SYRIN SQ SCH ×2 (09:07→20:15)
[2023-03-07] MEDS: AMINO ACIDS/PROTEIN HYDROLYS 30 ML LIQUID.PKT PO SCH ×3 (09:07→17:07)
[2023-03-07 09:09] LABS: POTASSIUM 3.6 mmol/L (3.5-5.1)
[2023-03-07] MEDS: FOLIC ACID 1 MG TABLET (FP) PO SCH (09:21)
[2023-03-07] MEDS: CLOPIDOGREL BISULFATE 75 MG TABLET (FP) PO SCH (09:21)
[2023-03-07] MEDS: FUROSEMIDE 40 MG/4 ML INJECTABLE VIAL IVPUSH SCH (09:22)
[2023-03-07] MEDS: POLYETHYLENE GLYCOL (HEALTHYLAX) 3350 17 GM PACKET PO SCH ×2 (09:22→09:33)
[2023-03-07 09:23] LABS: CALCIUM 8.1 mg/dL (8.5-10.1)
[2023-03-07 09:24] LABS: ALBUMIN 1.9 g/dl (3.4-5.0); BLOOD UREA NITROGEN 56.7 mg/dL (7-18)
[2023-03-07 09:27] LABS: CREATININE 1.5 mg/dL (0.55-1.3)
[2023-03-07 09:28] LABS: BILIRUBIN,TOTAL 0.4 mg/dL (0.2-1)
[2023-03-07 09:29] LABS: TOT PROT 5.3 g/dl (6.4-8.2)
[2023-03-07] MEDS: oxyCODONE HCL 5 MG TABLET PO PRN ×3 (09:33→22:57)
[2023-03-07] MEDS ORDERED: INSULIN (NOVOLOG) ASPART 100 UNITS/ML 10ML VIAL SQ ONE (21:02)
[2023-03-07] MEDS ORDERED: INSULIN ASPART SLIDING SCALE (NOVOLOG) 1 VIAL SQ ONE (21:47)
[2023-03-07] MEDS: TAMSULOSIN HCL 0.4 MG CAP PO SCH (21:48)
[2023-03-07] MEDS: ATORVASTATIN CA 80 MG TABLET (FP) PO SCH (21:49)
[2023-03-08] MEDS: oxyCODONE HCL 5 MG TABLET PO PRN ×2 (05:18→17:23)
[2023-03-08] MEDS: ALBUTEROL SO4 HFA INHALER IH SCH ×3 (05:20→17:11)
[2023-03-08] MEDS: ALBUTEROL SO4 2.5/IPRATROPIUM 0.5 INH SOL 3 ML VIAL.NEB. NEB SCH ×4 (07:52→20:18)
[2023-03-08] MEDS: BUDESONIDE 0.5 MG/2 ML INH SUSP VIAL NEB SCH ×2 (07:53→20:18)
[2023-03-08] MEDS: ENOXAPARIN NA (PORCINE) 40 MG/0.4 ML DISP.SYRIN SQ SCH ×2 (08:47→21:10)
[2023-03-08] MEDS: PIPERACILLIN/TAZOB 3.375 GM 3.375 GM in DEXTROSE 5%-WATER - 50 ML IVPB SCH ×2 (08:47→17:00)
[2023-03-08] MEDS: AMINO ACIDS/PROTEIN HYDROLYS 30 ML LIQUID.PKT PO SCH ×3 (08:47→17:11)
[2023-03-08] MEDS: CLOPIDOGREL BISULFATE 75 MG TABLET (FP) PO SCH (09:16)
[2023-03-08] MEDS: POLYETHYLENE GLYCOL (HEALTHYLAX) 3350 17 GM PACKET PO SCH (09:16)
[2023-03-08] MEDS: FOLIC ACID 1 MG TABLET (FP) PO SCH (09:16)
[2023-03-08] MEDS: FUROSEMIDE 40 MG/4 ML INJECTABLE VIAL IVPUSH SCH (09:17)
[2023-03-08] MEDS: methylPREDNISolone NA SUCC 40 MG/1 ML VIAL IVPUSH SCH ×2 (09:18→21:10)
[2023-03-08] MEDS: INSULIN ASPART SLIDING SCALE (NOVOLOG) 1 VIAL SQ SCH ×3 (11:37→21:10)
[2023-03-08] MEDS: TAMSULOSIN HCL 0.4 MG CAP PO SCH (21:10)
[2023-03-08] MEDS: ATORVASTATIN CA 80 MG TABLET (FP) PO SCH (21:10)
[2023-03-08 22:12] VITALS: RESP 18
[2023-03-09] MEDS: PIPERACILLIN/TAZOB 3.375 GM 3.375 GM in DEXTROSE 5%-WATER - 50 ML IVPB SCH ×3 (00:19→16:38)
[2023-03-09] MEDS: ALBUTEROL SO4 HFA INHALER IH SCH ×5 (00:20→23:00)
[2023-03-09] MEDS: INSULIN ASPART SLIDING SCALE (NOVOLOG) 1 VIAL SQ SCH ×4 (07:11→21:39)
[2023-03-09] MEDS: ALBUTEROL SO4 2.5/IPRATROPIUM 0.5 INH SOL 3 ML VIAL.NEB. NEB SCH ×3 (08:15→15:45)
[2023-03-09] MEDS: BUDESONIDE 0.5 MG/2 ML INH SUSP VIAL NEB SCH ×2 (08:15→20:18)
[2023-03-09 08:57] LABS: HEMATOCRIT 28.1 % (35.4-49); HEMOGLOBIN 9.5 GM/dL (11.7-16.9); MCHC 33.9 g/dl (32.0-35.9); MEAN CELL VOLUME 85.6 fl (80-96); MEAN PLT VOLUME 8.3 fl (7.5-11.1); PLATELET COUNT 452 10^3/uL (134-434); RBC 3.28 M/mm3 (4.00-5.60); RDW 22.9 % (11.9-15.9); WHITE BLOOD COUNT 13.4 K/mm3 (4.0-10.0)
[2023-03-09 09:26] LABS: POTASSIUM 4.1 mmol/L (3.5-5.1)
[2023-03-09 09:28] LABS: BLOOD UREA NITROGEN 62.3 mg/dL (7-18); CALCIUM 8.6 mg/dL (8.5-10.1)
[2023-03-09 09:31] LABS: CREATININE 1.6 mg/dL (0.55-1.3)
[2023-03-09] MEDS ORDERED: PIPERACILLIN/TAZOBACTAM 3.375 GM VIAL IVPB ONE ×2 (10:02→10:22)
[2023-03-09] MEDS: methylPREDNISolone NA SUCC 40 MG/1 ML VIAL IVPUSH SCH ×2 (10:24→21:38)
[2023-03-09] MEDS: ENOXAPARIN NA (PORCINE) 40 MG/0.4 ML DISP.SYRIN SQ SCH ×2 (10:25→21:38)
[2023-03-09] MEDS: FUROSEMIDE 40 MG/4 ML INJECTABLE VIAL IVPUSH SCH (10:25)
[2023-03-09] MEDS: FOLIC ACID 1 MG TABLET (FP) PO SCH (10:26)
[2023-03-09] MEDS: CLOPIDOGREL BISULFATE 75 MG TABLET (FP) PO SCH (10:30)
[2023-03-09] MEDS: AMINO ACIDS/PROTEIN HYDROLYS 30 ML LIQUID.PKT PO SCH ×3 (10:52→18:04)
[2023-03-09] MEDS ORDERED: INSULIN (NOVOLOG MIX 70/30) 100 UNITS/ML MDV SQ ONE (12:25)
[2023-03-09] MEDS ORDERED: INSULIN (NOVOLOG) ASPART 100 UNITS/ML 10ML VIAL ONE ×2 (12:27→21:30)
[2023-03-09] MEDS: oxyCODONE HCL 5 MG TABLET PO PRN (13:18)
[2023-03-09] MEDS: COLLAGENASE CLOSTRIDIUM HIST. 30 GRAMS TUBE TP SCH (13:20)
[2023-03-09] MEDS: AMOX TR/POT CLAV 500MG/125MG TABLETS (FP) PO SCH (17:58)
[2023-03-09] MEDS: ATORVASTATIN CA 80 MG TABLET (FP) PO SCH (21:40)
[2023-03-09] MEDS: TAMSULOSIN HCL 0.4 MG CAP PO SCH (21:40)
[2023-03-10] MEDS ORDERED: INSULIN (NOVOLOG) ASPART 100 UNITS/ML 10ML VIAL ONE ×3 (06:33→17:01)
[2023-03-10] MEDS: INSULIN ASPART SLIDING SCALE (NOVOLOG) 1 VIAL SQ SCH ×3 (06:43→17:03)
[2023-03-10] MEDS: ALBUTEROL SO4 HFA INHALER IH SCH ×3 (06:48→18:33)
[2023-03-10] MEDS ORDERED: AMOX TR/POT CLAV 875MG/125MG TABLETS (FP) PO SCH (08:00)
[2023-03-10] MEDS: BUDESONIDE 0.5 MG/2 ML INH SUSP VIAL NEB SCH (08:46)
[2023-03-10] MEDS: ALBUTEROL SO4 2.5/IPRATROPIUM 0.5 INH SOL 3 ML VIAL.NEB. NEB SCH ×4 (08:46→16:50)
[2023-03-10] MEDS: AMOX TR/POT CLAV 500MG/125MG TABLETS (FP) PO SCH ×2 (09:22→17:30)
[2023-03-10] MEDS: ENOXAPARIN NA (PORCINE) 40 MG/0.4 ML DISP.SYRIN SQ SCH (09:22)
[2023-03-10] MEDS: AMINO ACIDS/PROTEIN HYDROLYS 30 ML LIQUID.PKT PO SCH ×3 (09:22→17:30)
[2023-03-10] MEDS: CLOPIDOGREL BISULFATE 75 MG TABLET (FP) PO SCH (09:22)
[2023-03-10] MEDS: FOLIC ACID 1 MG TABLET (FP) PO SCH (09:22)
[2023-03-10] MEDS ORDERED: FUROSEMIDE 40 MG TABLET (FP) PO SCH (10:00)
[2023-03-10] MEDS ORDERED: predniSONE 20 MG TABLET (UD) PO SCH (10:00)
[2023-03-10] MEDS: COLLAGENASE CLOSTRIDIUM HIST. 30 GRAMS TUBE TP SCH (10:11)
[2023-03-10 14:15] VITALS: BMI 19.6
[2023-03-10 15:09] VITALS: BP 102/65; PULSE 81; TEMP 98.2
== END 2023-03-10 19:23 | DRG 190 ==
LOC: JER 14:49 → INTOOBSV 17:58 → JERBED 17:58 → J4S 03-03 03:35 → OBSVTOIN 03-04 09:22 → J8W 03-09 02:52
PROVIDERS: ADMIT Internal Medicine; ATTEND Nurse Practitioner Family
DX: J44.0 Chronic obstructive pulmonary disease with (acute) lower respiratory infection (principal); J18.9 Pneumonia, unspecified organism; I50.22 Chronic systolic (congestive) heart failure; C34.90 Malignant neoplasm of unspecified part of unspecified bronchus or lung; C79.51 Secondary malignant neoplasm of bone; N17.9 Acute kidney failure, unspecified; I69.354 Hemiplegia and hemiparesis following cerebral infarction affecting left non-dominant side; I24.89 Other forms of acute ischemic heart disease; I25.10 Atherosclerotic heart disease of native coronary artery without angina pectoris; J44.1 Chronic obstructive pulmonary disease with (acute) exacerbation; I11.0 Hypertensive heart disease with heart failure; I25.2 Old myocardial infarction; E78.5 Hyperlipidemia, unspecified; D64.9 Anemia, unspecified; R33.8 Other retention of urine; E16.2 Hypoglycemia, unspecified; N40.0 Benign prostatic hyperplasia without lower urinary tract symptoms; I73.9 Peripheral vascular disease, unspecified; Z95.1 Presence of aortocoronary bypass graft; Z99.81 Dependence on supplemental oxygen
CPT/HCPCS: 0241U-QW; 36415; 71045-TC-FY; 71250-TC; 74176-TC; 80048; 80053; 81003; 82728; 82803; 82962; 83540; 83550; 83605; 83735; 83880; 84100; 84466; 84484; 85025; 85027; 85045; 85610; 87040; 87077; 87081; 87086; 87635; 93005; 93010; 93925-TC; 94640; 97161-GP; 99285-25; G0378; J0131; J1644